=== PATIENT | female | born 1945 | race Caucasian/White ===

== ENCOUNTER → 2018-03-19 15:09 | Outpatient (CLI) | payer MEDICARE, SELFPAY ==
--- NOTE | 2018-03-19 15:19 | MM_ITS ---
MM Dig screening mamm BI w/CAD ORDERING PHYSICIAN : Augie Betancourt MD PATIENT AGE: 72 years GENDER: Female COMPARISON: Previous right mammogram right breast ultrasound from 10/31/2016 bilateral mammogram March 2016, February 2015, 2013. INDICATION: ITS.REASON: SCREENING no hormones. No new complaints. Noncontributory family history. TECHNIQUE: Standard CC and MLO images were obtained. R2 CAD reviewed. . Axillary cc view bilateral FINDINGS: Moderately dense breast bilaterally. RIGHT BREAST:No significant new findings. Small Cyst is previously noted 2015 at deep right breast stable to slightly smaller. 3 mm size... Not of concern & Can be followed. Other areas of mild asymmetric density at the right breast appears stable LEFT BREAST: There is 6 mm ovoid area of density upper-outer quadrant left breast is most likely a cyst. However would recommend spot film and subsequent ultrasound to further evaluate.. It is labeled X There is a focal area of glandular density labeled Y on the MLO view which I favor merely a summation shadow but would also benefit from spot view when the patient returns. MLO . Asymmetric tissue at the medial left breast on cc view is unchanged. IMPRESSION: 1. Left breast: new cyst near 6 mm ovoid density upper-outer quadrant left breast.-likely is a cyst . Recommend spot views & ultrasound left breast to further evaluate this likely cyst labeled X; . Spot view should include small focal of likely glandular density labeled Y.--likely merely summation shadow. 2. Right breast: no significant new findings.. Stable 3 mm cyst deep breast Follow-up one year on right Moderately dense breast bilaterally BI-RADS Category: 0 Need Additional Imaging Evaluation RECOMMENDED FOLLOW-UP: IMM - IMMEDIATE FOLLOW-UP RECOMMENDED Spot views and ultrasound left breast as above (A letter has been sent to the patient regarding results of the study.)
--- NOTE | 2018-03-19 15:19 | XR_ITS ---
XR DEXA axial skeleton HISTORY: ITS.REASON: POST MENOPAUSAL ORDERING PHYSICIAN: Augie Betancourt MD PATIENT AGE: 72 years COMPARISON: 11/24/2015 FINDINGS: The BMD measured at the AP Spine L1-L4 is 0.613 g/cm squared with a T score of -4.7. This is considered Osteoporotic according to the World Health Organization criteria. Fracture risk is High. Treatment is advised. The mean hip density has a T score -3.7. L-spine density slightly lower by 0.6% and the hip density has decreased by 1.4% from the previous exam IMPRESSION: Osteoporosis with high fracture risk. Treatment is advised. Recommend follow-up exam February 2019
== END ==
PROVIDERS: PCP Family Medicine; Visit Provider Family Medicine
DX: Z12.31 Encounter for screening mammogram for malignant neoplasm of breast (principal); Z78.0 Asymptomatic menopausal state
CPT/HCPCS: 77067; 77080

== ENCOUNTER → 2019-04-23 15:37 | Outpatient (CLI) | payer MEDICARE, SELFPAY ==
--- NOTE | 2019-04-23 15:43 | MM_ITS ---
PROCEDURE: MM DIG SCREENING MAMM BI W/CAD CLINICAL INDICATION: SCREENING There is no personal or family history of breast cancer. COMPARISON: [facility]MSB DIG MAMM-SCREEN SAL from 04/10/2016 DMDXUR DIG MAMM-DX UNI-RT W/CAD from 10/31/2016 [facility] MM Dig screening mamm BI w/CAD from 03/19/2018 TECHNIQUE: Standard CC and MLO images were obtained. R2 CAD reviewed. FINDINGS: Prominent diffuse and somewhat heterogenic fibroglandular densities are seen in both breast, glandular elements slightly more prominent right breast than left. There is a stable tiny nodular lesion central portion right breast probably a small cyst or fibroadenoma. It is actually slightly smaller than seen on previous mammogram 10/31/2016 but basically stable from last year's exam. There is no suspicious lesion and no suspicious microcalcifications. IMPRESSION: Moderate diffuse breast density with no suspicious lesions seen BI-RAD Category: 2 Benign Finding(s) FOLLOW-UP: 1YR 1 Year Follow-up (A letter has been sent to the patient regarding results of the study.) Dictated by: Dr. Mahesh Ortega MD 04/24/2019 14:[address] Mahesh Ortega MD in [place] 04/24/2019 14:07
== END ==
PROVIDERS: PCP Family Medicine; Referring Provider Family Medicine; Visit Provider Family Medicine
DX: Z12.31 Encounter for screening mammogram for malignant neoplasm of breast (principal)
CPT/HCPCS: 77067

== ENCOUNTER → 2020-04-25 13:00 | Outpatient (CLI) | payer MEDICARE, SELFPAY ==
--- NOTE | 2020-04-25 13:02 | XR_ITS ---
PROCEDURE: XR DEXA AXIAL SKELETON CLINICAL HISTORY: OSTEOPOROSIS post menopausal , patient states she is not on any prescription bone growth meds COMPARISON: CR DEXAAX XR DEXA axial skeleton from 03/19/2018 FINDINGS: The right hip BMD is 0.498 with a T-score of -3.6. The left hip BMD is 0.423 with a T-score of -4.3. The lumbar spine BMD is 0.496 with a T-score of -5.0. Previously the lowest bone density was in the lumbar spine with a T-score of -4.7. IMPRESSION: This patient is considered osteoporotic according to the World Health Organization criteria. Fracture risk is high. Treatment is advised. Based on these results a follow-up exam is recommended in 1 year. Dictated by: Juliano Euceda MD 04/26/2020 07:04 Juliano Euceda MD in [place] 04/26/2020 07:04
--- NOTE | 2020-04-25 13:03 | MM_ITS ---
PROCEDURE: MM DIG SCREENING MAMM BI W/CAD Referring Doctor: Augie Betancourt Patient Age:74Y CLINICAL INDICATION: SCREENING 74-year-old. No hormones, no new complaints. Family history noncontributory unremarkable COMPARISON: MG DMDXUR DIG MAMM-DX UNI-RT W/CAD from 10/31/2016 US BR US BREAST-RT COMPLETE W/AXILLA from 10/31/2016 MG [facility] MM Dig screening mamm BI w/CAD from 03/19/2018 MG MM DIG SCREENING MAMM BI W/CAD from 04/23/2019 TECHNIQUE: Standard CC and MLO images were obtained. R2 CAD reviewed. Bilateral digital breast tomosynthesis included. Additional axillary CC views bilateral but FINDINGS: Moderate density residual breast tissue most notable distributed throughout central breast into the upper-outer quadrant mammography with slightly decrease sensitivity in these areas of increased breast density Right breast. No new findings of concern There is a small nodular density seen at the right breast inferiorly but this the appears to be a small cyst which was identified on previous October 2016 mammogram and ultrasound located at 5-6 o'clock. This density it fluctuates from mammogram to mammogram Left breast: No new areas of concern. A stable areas ofasymmetry tissue lateral and superior left breast appearsimilar, stable to previous studies.. However with this appearance and pattern would encourage and emphasize annual follow-up IMPRESSION: No new areas of significant concern moderately dense areas of asymmetric breast tissue appear similar to previous study . Small cyst right breast at 5-6 o'clock has been seen previously Bilateral follow-up 1 year recommended and should be encouraged/emphasized. BI-RAD Category: 2 Benign Finding(s) FOLLOW-UP: 1YR 1 Year Follow-up (A letter has been sent to the patient regarding results of the study.) Dictated by: Jose Clifford MD 04/27/2020 11:09 Jose Clifford MD in [place] 04/27/2020 11:09
== END ==
PROVIDERS: PCP Family Medicine; Visit Provider Family Medicine
DX: Z12.31 Encounter for screening mammogram for malignant neoplasm of breast (principal); M81.0 Age-related osteoporosis without current pathological fracture
CPT/HCPCS: 77063; 77067; 77080

== ENCOUNTER → 2021-01-10 13:36 | Outpatient (POV) | payer MEDICARE, SELFPAY | PROVIDERS: Visit Provider Dermatology | DX: Z00.00 Encounter for general adult medical examination without abnormal findings (principal) ==

== ENCOUNTER → 2021-05-22 12:46 | Outpatient (CLI) | payer MEDICARE, SELFPAY ==
--- NOTE | 2021-05-22 12:51 | MM_ITS ---
PROCEDURE INFORMATION: Exam: MG Bilateral Screening 3D Mammography Exam date and time: 05/22/2021 12:51 PM Age: 75 years old Clinical indication: Screening mammogram TECHNIQUE: Imaging protocol: Bilateral screening tomosynthesis and 2D mammography including computer-aided detection (CAD) when performed. COMPARISON: 1. MG MM DIG SCREENING MAMM BI W/CAD 04/25/2020 1:03 PM 2. MG MM DIG SCREENING MAMM BI W/CAD 04/23/2019 3:54 PM 3. MG [facility] MM Dig screening mamm BI w/CAD 03/19/2018 4:08 PM 4. MG DMDXUR DIG MAMM-DX UNI-RT W/CAD 10/31/2016 1:52 PM FINDINGS: MAMMOGRAPHY: Breast composition: The breast tissue is heterogeneously dense, which may obscure small masses. Mass: Stable benign-appearing subcentimeter nodules are present in the right breast. No new or morphologically suspicious nodule has developed to suggest malignancy. Architectural distortion: No new or suspicious architectural distortion. Calcifications: No new or suspicious calcifications are present Asymmetric density: No new or suspicious asymmetric density is present Skin thickening: None. Axillary adenopathy: None. IMPRESSION: No mammographic evidence of malignancy. Recommend annual screening mammography unless otherwise clinically indicated. ASSESSMENT: BI-RADS category 2: Benign
== END ==
PROVIDERS: PCP Family Medicine; Visit Provider Family Medicine
DX: Z12.31 Encounter for screening mammogram for malignant neoplasm of breast (principal)
CPT/HCPCS: 77063; 77067

== ENCOUNTER → 2022-03-13 13:37 | Outpatient (POV) | payer MEDICARE, SELFPAY | PROVIDERS: Visit Provider Dermatology | DX: Z00.00 Encounter for general adult medical examination without abnormal findings (principal) ==

== ENCOUNTER 2022-03-16 20:21 | Emergency (ER) | payer MEDICARE, SELFPAY ==
[2022-03-16 20:22] VITALS: BP 106/55; PULSE 76; RESP 16; TEMP 36.6; O2SAT 96; BMI 19.1
--- NOTE | 2022-03-16 20:57 | ECG_ITS ---
APPROVED REPORT Exam: Resting ECG HR:68 bpm ECG Measurements Heart Rate 68 AXES VA 185 P 78 QRSd 107 QRS 89 QT 400 T 82 QTc 418 Conclusion SINUS RHYTHM LEFT VENTRICULAR HYPERTROPHY AND ST-T CHANGE [VOLTAGE CRITERIA PLUS ST/T ABNORMALITY] ABNORMAL ECG UNCONFIRMED REPORT Electronically signed by : Myles Araya MD 03/18/2022 21:20:02
[2022-03-16 21:30] VITALS: BP 95/52; PULSE 69; RESP 14; O2SAT 95
--- NOTE | 2022-03-16 21:38 | CT_ITS ---
PROCEDURE INFORMATION: Exam: CT Abdomen And Pelvis With Contrast Exam date and time: 03/16/2022 10:03 PM Age: 76 years old Clinical indication: Abdominal pain; Generalized; Additional info: Abd pain vomiting diarrhea TECHNIQUE: Imaging protocol: Computed tomography of the abdomen and pelvis with contrast. Radiation optimization: All CT scans at this facility use at least one of these dose optimization techniques: automated exposure control; mA and/or kV adjustment per patient size (includes targeted exams where dose is matched to clinical indication); or iterative reconstruction. Contrast material: ISOVUE; Contrast volume: 75 ml; Contrast route: IV; COMPARISON: LDCTLCAS LDCT FOR LUNG CA SCREEN 03/20/2017 1:46 PM FINDINGS: Liver: Normal. No mass. Gallbladder and bile ducts: No calcified stones. No ductal dilation. Pancreas: Normal enhancement. No ductal dilation. Spleen: No splenomegaly. Adrenal glands: No mass. Kidneys and ureters: No hydronephrosis. Stomach and bowel: Suspected wall thickening of the transverse and descending colon which are decompressed and not well evaluated. Appendix: No evidence of appendicitis. Intraperitoneal space: No free air. No significant fluid collection. Vasculature: Calcified atherosclerosis. No aneurysm. Lymph nodes: No enlarged lymph nodes. Urinary bladder: No acute abnormality. Reproductive: No acute abnormality. Bones/joints: S shaped curvature of the spine. No fracture. Soft tissues: No soft tissue swelling. IMPRESSION: Suspected wall thickening of the transverse and descending colon which may in part be secondary to underdistention however does raise concern for potential colitis.
[2022-03-16 21:50] LABS: Chloride 98 mmol/L (98-107); Potassium 3.5 mmoL/L (3.5-5.1); Sodium 136 mmol/L (136-145)
[2022-03-16 21:51] LABS: Basophils % 0.2 % (0.1-2.0); Eosinophils # 0.1 K/mm3 (0.0-0.4); Eosinophils % 0.4 % (0.1-12.0); Hematocrit 39.9 % (37.0-47.0); Hemoglobin 12.7 g/dL (12.2-16.2); Lymphocytes % 7.7 % (10-50); Mean Corpuscular HGB Conc 31.7 g/dL (31.8-35.4); Mean Corpuscular Hemoglobin 29.7 pg (27.0-31.2); Mean Corpuscular Volume 93.6 fl (81-99); Mean Platelet Volume 8.2 fl (7.4-10.4); Monocytes # 0.1 K/mm3 (0.1-1.0); Monocytes % 0.6 % (1.7-9.3); Neutrophils # 11.4 K/mm3 (1.8-7.8); Neutrophils % 91.1 % (37.0-80.0); Platelet Count 267 K/mm3 (142-424); Red Blood Count 4.26 M/mm3 (4.20-5.40); White Blood Count 12.5 K/mm3 (4.8-10.8)
[2022-03-16 21:53] LABS: Alanine Aminotransferase 19 U/L (12-78); Albumin Level 3.9 g/dl (3.5-5.0); Albumin/Globulin Ratio 0.9 (1.1-1.8); Alkaline Phosphatase 119 U/L (38-126); Amylase 140 U/L (30-110); Anion Gap 10.5 mEq/L (5-15); Aspartate Amino Transferase 34 U/L (14-36); Bilirubin,Total 0.3 mg/dl (0.2-1.3); Blood Urea Nitrogen 27 mg/dl (7-17); Calcium 8.5 mg/dl (8.4-10.2); Carbon Dioxide 31 mmol/L (22.0-30.0); Creatinine Clearance Estimated 28 mL/min (50-200); Estimated Glomerular Filt Rate 44 ml/min (>60); GFR (African American) 53 ML/MIN (>60); Globulin 4.5 g/dL (1.3-3.2); Glucose 152 mg/dl (74-100); Lipase 62 U/L (23-300); Total Protein,Serum 8.4 g/dl (6.3-8.2)
[2022-03-16 21:54] LABS: MANUAL DIFFERENTIAL MANUAL DIFFERENTIAL (MANUAL DIFF)
[2022-03-16 22:00] VITALS: BP 96/47; PULSE 68; RESP 16; O2SAT 92
--- NOTE | 2022-03-16 22:27 | HMH.EDNVD ---
Discharge Plan Disposition Patient Disposition: Home, Self-Care Prescriptions Prescriptions: New ondansetron HCl 4 mg Tablet 4 mg PO Q8H PRN (Reason: Nausea) Qty: 20 0RF Referrals Follow up/Referrals: Augie Betancourt MD [Primary Care Provider] - See instructions Clinical Impressions Clinical Impression: Colitis Instructions Patient Instructions: DI for Diarrhea and Traveler's Diarrhea -- Adult, DI for Nausea -- Adult Discharge ED Provider: Trevor Campa Nausea/Vomiting/Diarrhea HPI General Chief complaint: Nausea/Vomiting/Diarrhea Stated complaint: V/D Time Seen by Provider: 03/16/22 22:27 Mode of Arrival: Wheelchair Source of Information: Patient, Relative and Medical Record Limitations: No Limitations Description of Symptoms (Recalled from ER Triage Doc. by RN): pt stated pt ate at 4 pm and now she has vomiting and weakness the pt states she is having severe abd cramping History of Present Illness HPI Narrative: after eating today has crampy abd pain with vomiting and bldy diarrhea - has same issue this summer and was treated as op - MD complaint: nausea, vomiting, diarrhea and abdominal pain Onset (ago): hour(s) Description of Diarrhea: bloody Associated Abdominal Pain: Yes Location of pain: diffuse Severity: moderate Context: possible food poisoning Associated symptoms: denies other symptoms Related Data Previous Rx's Medication Instructions Recorded ondansetron HCl 4 mg tablet 4 mg PO Q8H PRN Nausea #20 tabs 03/17/22 Allergies Allergy/AdvReac Type Severity Reaction Status Date / Time INGREDIENT: NO KNOWN - NO Allergy Unknown Uncoded 05/07/17 14:25 KNOWN DRUG ALLERGY PFSH PFS Social History Smoking Status: Unknown if ever smoked alcohol intake: never current occupational status: retired Travel in the last 8 weeks: None ROS Obtained: Yes All systems reviewed & no additional complaints except as documented Constitutional Constitutional: Denies fever(s) and Denies headache(s) ENT Ears, Nose, Mouth, and Throat: Denies headache(s) Cardiovascular Cardiovascular: Denies chest pain Respiratory Respiratory: Denies shortness of breath Gastrointestinal Gastrointestingal: Reports as per HPI, cramping and hematochezia Musculoskeletal Musculoskeletal: Denies back pain Integumentary/Breasts Skin/Breast: Denies new lesions Neurologic Neurologic: Denies headache(s) Physical Exam General General appearance: alert Head Head exam: normocephalic Eye Eye exam: Present PERRL and EOMI ENT ENT exam: Present mucous membranes moist Neck Neck exam: Present trachea midline Respiratory Respiratory exam: Present normal lung sounds bilaterally; Absent respiratory distress Cardiovascular Cardiovascular exam: Present regular rate Abdominal Exam Abdominal exam: Present soft Extremities Exam Extremities exam: Present full ROM Neurological Exam Neurological exam: Present alert, oriented X3 and CN II-XII intact Psychiatric Psychiatric exam: Present normal affect Skin Skin exam: Absent rash Medical Decision Making Medical Records Medical records reviewed: Yes I reviewed the patient's medical records. Oren Inquiry Pt receiving controlled substance: No Vital Signs: 03/16/22 20:22 Temperature 97.8 F Temperature Source Oral Pulse Rate [Left] 76 Respiratory Rate 16 Blood Pressure [Right Arm] 106/55 L Blood Pressure Mean [Right Arm] 72 02 Sat by Pulse Oximetry 96 Oxygen Delivery Method Room Air Lab Data Lab results reviewed: Yes I reviewed the patient's lab results. Lab Results 03/16/22 21:00: WBC 12.5 H, RBC 4.26, Hgb 12.7, Hct 39.9, MCV 93.6, MCH 29.7, MCHC 31.7 L, RDW 14.0, Plt Count 267, MPV 8.2, Neut % (Auto) 91.1 H, Lymph % (Auto) 7.7 L, [place] % (Auto) 0.6 L, Eos % (Auto) 0.4, Baso % (Auto) 0.2, Neut # (Auto) 11.4 H, Lymph # (Auto) 1.0, [place] # (Auto) 0.1, Eos # (Auto) 0.1, Baso # (Auto) 0.0, Total Counted 100, Neutrophils % (Manual) 88 H, Lymphocytes % (
[2022-03-16 22:30] VITALS: BP 114/60; PULSE 77; O2SAT 94
[2022-03-16 22:48] LABS: Lymphocytes % 11 % (10-50); Monocytes % 1 % (2-9); Neutrophils % 88 % (42-76); Platelet Estimate Normal; Stomatocytes 1+; Total Cells Counted 100
[2022-03-16 23:04] LABS: Microscopic, Urine URINE MICROSCOPIC (MICROSCOPIC)
[2022-03-16 23:30] VITALS: BP 122/63; PULSE 84; O2SAT 95
[2022-03-16 23:42] LABS: Appearance,Urine CLEAR (Clear); Bilirubin,Urine Negative (Negative); Blood, Urine Negative (Negative); Color,Urine YELLOW (Yellow); Glucose,Urine (UA) Negative (Negative); Ketones,Urine TRACE (Negative); Leukocyte Esterase,Urine TRACE (Negative); Nitrate,Urine Negative (Negative); Protein,Urine 1+ (Negative); Specific Gravity, Urine <= 1.005 (1.005-1.030); Urobilinogen,Urine 0.2 EU/dl (0.2)
[2022-03-17] VITALS: BP 131/72; PULSE 84; O2SAT 92
[2022-03-17 00:30] VITALS: BP 124/62; PULSE 89; O2SAT 92
[2022-03-17 00:48] LABS: Bacteria,Urine Trace /lpf
[2022-03-17 00:58] VITALS: BP 120/74; PULSE 69; RESP 16; TEMP 36.6; O2SAT 96
== END 2022-03-17 01:00 | disposition home or self-care (01) ==
PROVIDERS: Emergency Provider Emergency Medicine; PCP Family Medicine
DX: K52.9 Noninfective gastroenteritis and colitis, unspecified (principal)
CPT/HCPCS: 74177; 80053; 81001; 82150; 83690; 85007; 85025; 87040; 93005; 96365; 96375; 96376; 99284; J2405; Q9967

== ENCOUNTER 2022-04-18 09:01 | Day surgery (SDC) | payer MEDICARE, SELFPAY ==
[2022-03-26 13:34] VITALS: BMI 19.1
[2022-04-18] VITALS (7 sets, daily range): BP systolic 126–152; BP diastolic 8–85; PULSE 62–108; RESP 16–18; TEMP 36.7; O2SAT 96–97
--- NOTE | 2022-04-18 10:55 | EXP.ANES.CKL ---
PFSH PFS Medical History Hx of primary hypertension Hx of scoliosis Surgical History History of arthroscopy of left shoulder Family History Other Family history of diabetes mellitus type II Family history of stroke Social History Smoking Status: Current every day smoker tobacco type: cigarettes packs per day: 1 pack-years: 20 alcohol intake: never substance use type: denies use current occupational status: retired Travel in the last 8 weeks: None adopted: No caregiver/support person: No foster care: No household members: none housing: apartment lives independently: Yes marital status: single education level: high school service: No [place] [facility]: No special jose needs: No agree to transfusion: No do you feel safe at home: Yes victim of physical abuse: No victim of emotional abuse: No victim of sexual abuse: No would you like helpful sources: No [facility] Anesthesia Checklist Patient Identification Patient Identification: Arm Band Structural Data Admitted From: Home Planned Operative Procedure/s: colonoscopy Consent for Planned Operative Procedure(s) Verified: Yes Verified Documents: Surgical Consent and History and Physical NPO Status Verified Time NPO: 00:00 Additional verifications Anesthesia Reactions: No Airway Assessment C-Spine Mobility Assessed: Yes TMJ Mobility Assessed: Yes Dentition: Good Dentition Neurological Assessment Level of Consciousness: Awake and Alert Anesthesia Plan Anesthesia Risk discussed: Yes Anesthesia Plan: Verified ASA Class: II Anesthesia Type: MAC
--- NOTE | 2022-04-18 11:23 | HMH.SCOPE ---
Procedure: Date: 04/18/22 Patient Date of :: 1945 Procedure Performed:: Colonoscopy Indications:: Screening colonoscopy The patient had diarrhea symptom in February. CT scan showed possible colon wall thickening of the transverse and descending colon, reported that this finding may have also been underdistension of the colon. The patient is no longer experiencing diarrhea symptom Performing Provider:: Sourav Ahn MD Referring Provider:: Rickie Betancourt MD Sedation:: See RN notes Procedure:: After placing the patient in the left lateral decubitus position, the colonoscopy was gently inserted into the rectum and under direct visualization advanced to the cecum which was identified by transillumination in the right lower quadrant, identification of the ileocecal valve, appendiceal orifice, and cecal strap. Color, texture, mucosa, and anatomy of the colon were carefully examined with the scope. Findings:: Anal canal: normal Rectum: normal Sigmoid colon: Polyp less than 10 mm in size at 20 cm. Removed with cold snare polypectomy Descending colon: normal without polyps or inflammatory changes Splenic flexure: normal Transverse colon: normal without polyps or inflammatory changes Hepatic flexure: normal Ascending colon: normal without polyps or inflammatory changes Cecum: normal Terminal ileum: not visualized Recommendations:: Await pathology results In view of age, no further surveillance colonoscopy can be recommended Complications:: none Estimated blood obtained (mL): 0
== END 2022-04-18 12:15 | disposition home or self-care (01) ==
PROVIDERS: PCP Family Medicine; Visit Provider Internal Medicine
PROC: 0DJD8ZZ Inspection of Lower Intestinal Tract, Via Natural or Artificial Opening Endoscopic (ICD-10-PCS; CPT 45378; principal; 2022-04-18 10:30)
DX: Z12.11 Encounter for screening for malignant neoplasm of colon (principal); K63.5 Polyp of colon; Z72.0 Tobacco use; Z79.899 Other long term (current) drug therapy
CPT/HCPCS: 45385; 88305

== ENCOUNTER → 2022-06-04 15:38 | Outpatient (CLI) | payer MEDICARE, SELFPAY ==
--- NOTE | 2022-06-04 15:41 | MM_ITS ---
PROCEDURE INFORMATION: Exam: MG Bilateral Screening 3D Mammography Exam date and time: 06/04/2022 3:58 PM Age: 77 years old Clinical indication: Screening examination TECHNIQUE: Imaging protocol: Bilateral Screening tomosynthesis and 2D mammography including computer-aided detection (CAD) when performed. COMPARISON: 1. MG MM DIG SCREENING MAMM BI W/CAD 05/22/2021 12:58 PM 2. MG MM DIG SCREENING MAMM BI W/CAD 04/25/2020 1:03 PM FINDINGS: MAMMOGRAPHY: Breast composition: The breasts are heterogeneously dense, which may obscure small masses. Mass: None. Architectural distortion: None. Calcifications: No suspicious calcifications. Asymmetric density: None. Skin thickening: None. Axillary adenopathy: None. IMPRESSION: No mammographic evidence of malignancy. Annual screening is recommended unless otherwise clinically indicated. ASSESSMENT: BI-RADS Category 1: Negative
== END ==
PROVIDERS: PCP Family Medicine; Visit Provider Family Medicine
DX: Z12.31 Encounter for screening mammogram for malignant neoplasm of breast (principal)
CPT/HCPCS: 77063; 77067

== ENCOUNTER → 2022-07-06 08:56 | Outpatient (CLI) | payer MEDICARE, SELFPAY ==
--- NOTE | 2022-07-06 09:04 | XR_ITS ---
FINAL REPORT TECHNIQUE: Bone densitometry calculations of the lumbar spine and hips were obtained. CLINICAL HISTORY: . post menopausal screening FINDINGS: DEXA BONE DENSITY AXIAL SKELETON Using L1-4, the bone mineral density of the spine is 0.598 g/cm2, corresponding to T-score of -4.1 with a Z-score of -1.5. Using the left hip, the bone mineral density of the total hip is 0.410 g/cm2, corresponding to a T-score of -4.4 with a Z-score of -2.4. Using the right hip, the bone mineral density of the femoral neck is 0.502 g/cm2, corresponding to a T-score of -3.1 with a Z-score of -0.9. NOTE: T-score: Standard deviation compared with peak bone mass of young adult mean. *Following the recommendations of the International Society of Bone Densitometry, classification of hip BMD is based on the lower of two T-scores; total hip or femoral neck. IMPRESSION: Osteoporosis: Lowest T-score is at or below -2.5. This patient's T-score meets the World Health Organization criteria for osteoporosis. Reviewed, Interpreted and Dictated by Jaye Mccarty MD Transcribed by Jessa Feliz Authenticated and [facility]
[2022-07-06 10:33] LABS: Alanine Aminotransferase 11 U/L (12-78); Albumin Level 4.1 g/dl (3.5-5.0); Albumin/Globulin Ratio 0.7 (1.1-1.8); Alkaline Phosphatase 84 U/L (38-126); Aspartate Amino Transferase 21 U/L (14-36); Bilirubin,Total 0.5 mg/dl (0.2-1.3); Blood Urea Nitrogen 17 mg/dl (7-17); Calcium 8.7 mg/dl (8.4-10.2); Carbon Dioxide 30 mmol/L (22.0-30.0); Chloride 107 mmol/L (98-107); Chol/HDL Ratio 4.4 (1-3.5); Cholesterol 182 mg/dl (140-200); Estimated Glomerular Filt Rate 97 ml/min (>60); GFR (African American) 117 ML/MIN (>60); Globulin 5.9 g/dL (1.3-3.2); Glucose 108 mg/dl (74-100); HDL Cholesterol 41 mg/dl (40-60); Sodium 139 mmol/L (136-145); Triglycerides 87 mg/dl (30-150); VLDL Cholesterol 17 mg/dL (0-40)
[2022-07-06 10:44] LABS: Direct LDL Cholesterol 81.53 mg/dL (100-129)
== END ==
PROVIDERS: PCP Family Medicine; Visit Provider Family Medicine
DX: Z00.00 Encounter for general adult medical examination without abnormal findings (principal); I10 Essential (primary) hypertension; M81.0 Age-related osteoporosis without current pathological fracture
CPT/HCPCS: 36415; 77080; 80053; 80061; 81001; 82043

== ENCOUNTER → 2023-02-13 09:59 | Outpatient (CLI) | payer MEDICARE, SELFPAY ==
[2023-02-13 11:10] LABS: Alanine Aminotransferase 14 U/L (12-78); Albumin Level 3.7 g/dl (3.5-5.0); Alkaline Phosphatase 80 U/L (38-126); Amylase 62 U/L (30-110); Anion Gap 9.1 mEq/L (5-15); Aspartate Amino Transferase 20 U/L (14-36); Bilirubin,Total 0.3 mg/dl (0.2-1.3); Blood Urea Nitrogen 16 mg/dl (7-17); Calcium 8.5 mg/dl (8.4-10.2); Carbon Dioxide 28 mmol/L (22.0-30.0); Chloride 104 mmol/L (98-107); Chol/HDL Ratio 4.6 (1-3.5); Cholesterol 178 mg/dl (140-200); Estimated Glomerular Filt Rate 97 ml/min (>60); GFR (African American) 117 ML/MIN (>60); Glucose 106 mg/dl (74-100); HDL Cholesterol 39 mg/dl (40-60); Lipase 35 U/L (23-300); Potassium 4.1 mmoL/L (3.5-5.1); Sodium 137 mmol/L (136-145); Triglycerides 90 mg/dl (30-150); VLDL Cholesterol 18 mg/dL (0-40)
[2023-02-13 11:21] LABS: Direct LDL Cholesterol 83.68 mg/dL (100-129)
[2023-02-13 11:40] LABS: Albumin/Globulin Ratio 0.5 (1.1-1.8); Globulin 7.3 g/dL (1.3-3.2)
[2023-02-13 11:41] LABS: Thyroid Stimulating Hormone 0.92 uIU/mL (0.465-4.68)
[2023-02-13 11:50] LABS: Total Protein,Serum 10.1 g/dl (6.3-8.2)
== END ==
PROVIDERS: PCP Family Medicine; Visit Provider Family Medicine
DX: I10 Essential (primary) hypertension (principal); R63.4 Abnormal weight loss; R11.0 Nausea
CPT/HCPCS: 36415; 80053; 80061; 82150; 83690; 84443

== ENCOUNTER → 2023-03-04 09:00 | Outpatient (CLI) | payer MEDICARE, SELFPAY ==
--- NOTE | 2023-03-04 09:05 | CT_ITS ---
FINAL REPORT CLINICAL HISTORY: WEIGHT LOSS,EPIGASTRIC PAIN COMPARISON: 03/16/2022 FINDINGS: CT OF THE ABDOMEN AND PELVIS WITH CONTRAST Axial CT images of the abdomen and pelvis were obtained after the administration of oral and iv contrast. Coronal reformatted images were also obtained and reviewed.This study was performed with techniques to keep radiation doses as low as reasonably achievable (ALARA). Individualized dose reduction techniques using automated exposure control or adjustment of mA and/or kV according to the patient's size were employed. Abdomen: There is mild scarring in the lung bases. The heart is normal in size. The liver has an unremarkable appearance, without evidence of mass or biliary ductal dilatation. There is mild gallbladder wall thickening which is nonspecific. The spleen is unremarkable. No adrenal mass is present. There is mild prominence of the pancreatic duct measuring approximately 3 mm, stable and of questionable significance. There is a less than 1 cm cyst in the left kidney which is stable. There are other several less than 1 cm left renal cysts. The aorta is normal in caliber. There is no free fluid or adenopathy. No mass or abnormal fluid collection is seen. There is a moderate to large amount of retained stool. There is soft tissue fullness at the GE junction which could represent infectious or neoplastic. Pelvis: The appendix normal. The urinary bladder is unremarkable. No inflammatory process is seen. There is no evidence of mass or adenopathy. There is no evidence of bowel obstruction. IMPRESSION: Soft tissue fullness at the GE junction. Recommend correlation with upper endoscopy. Stable nonspecific mild prominence of the pancreatic duct of questionable significance. Reviewed, Interpreted and Dictated by Jez Evans III, MD Transcribed by Christel Thomas Authenticated and [facility]
== END ==
PROVIDERS: PCP Family Medicine; Visit Provider Family Medicine
DX: R10.13 Epigastric pain (principal); R63.4 Abnormal weight loss
CPT/HCPCS: 74177; Q9967

== ENCOUNTER 2023-03-27 10:59 | Day surgery (SDC) | payer MEDICARE, SELFPAY ==
[2023-03-26 11:11] VITALS: BMI 19.5
[2023-03-27 11:26] VITALS: BP 159/87; PULSE 108; RESP 18; TEMP 37.1; O2SAT 94
--- NOTE | 2023-03-27 12:14 | EXP.ANES.CKL ---
[facility] Disclaimer: The information contained in this section may have been updated after the patient was seen, as this information can be updated by other users. Medical History Hx of primary hypertension Hx of scoliosis Surgical History History of arthroscopy of left shoulder Family History Other Family history of diabetes mellitus type II Family history of stroke Social History Smoking Status: Current every day smoker tobacco type: cigarettes packs per day: 1 alcohol intake: never substance use type: denies use current occupational status: retired Travel in the last 8 weeks: None adopted: No caregiver/support person: No foster care: No household members: none housing: apartment lives independently: Yes marital status: single education level: high school service: No halfway: No special jose needs: No agree to transfusion: No do you feel safe at home: Yes victim of physical abuse: No victim of emotional abuse: No victim of sexual abuse: No would you like helpful sources: No [facility] Anesthesia Checklist Patient Identification Patient Identification: Verbal (Name & ) Structural Data Admitted From: Home Planned Operative Procedure/s: colonoscopy Consent for Planned Operative Procedure(s) Verified: Yes NPO Status Verified Time NPO: 00:00 Additional verifications Anesthesia Reactions: No Airway Assessment Mallampati Score:: Class I C-Spine Mobility Assessed: Yes TMJ Mobility Assessed: Yes Dentition: Good Dentition Neurological Assessment Level of Consciousness: Awake, Alert and Appropriate Anesthesia Plan Anesthesia Risk discussed: Yes Anesthesia Plan: Verified ASA Class: II Anesthesia Type: MAC
[2023-03-27 12:24] VITALS: O2SAT 99
[2023-03-27 12:36] VITALS: BP 124/70; PULSE 96; RESP 18; TEMP 37.2; O2SAT 96
--- NOTE | 2023-03-27 12:36 | HMH.SCOPE ---
Procedure: Date: 03/27/23 Patient Date of :: 1945 Procedure Performed:: EGD Indications:: Abnormal CT abdomen and pelvis with contrast on 03/04/23 for epigastric abdominal pain that showed possible soft tissue fullness at the GE junction. CT scan also suggested possible mild pancreatic duct prominence. Performing Provider:: Sourav Ahn MD Referring Provider:: Rickie Betancourt MD Sedation:: See RN records Procedure:: The gastroscope was gently passed through the incisoral orifice into the oral cavity and under direct visualization the esophagus was intubated. The endoscope was passed down the esophagus, through the stomach, and into the duodenum. Color, texture, mucosa, and anatomy of the esophagus, stomach, and duodenum were carefully examined with the scope. Findings:: Oropharynx: normal Esophagus: Small white mucosal lesion of distal esophagus, suspected sqaumous papilloma. Removed with cold forceps EG Junction: measured at 35 cm Cardia: normal Fundus: normal Body: normal Antrum: normal Duodenal bulb: normal Duodenum (second and third portion): normal Impression: Sqaumous papilloma of distal esophagus Normal apearance to GE junction Recommendations:: Await pathology results Refer for EUS evaluation of abnormal CT findings Complications:: None Estimated blood obtained (mL): 0 Colonoscopy Component Colonoscopy Component Was a colonoscopy performed during today's procedure?: No
[2023-03-27 12:46] VITALS: BP 122/94; PULSE 99; RESP 18; O2SAT 96
[2023-03-27 12:56] VITALS: BP 144/82; PULSE 95; RESP 18; O2SAT 98
[2023-03-27 13:06] VITALS: BP 139/72; PULSE 89; RESP 18; TEMP 37.2; O2SAT 96
== END 2023-03-27 13:06 | disposition home or self-care (01) ==
PROVIDERS: PCP Family Medicine; Visit Provider Internal Medicine
PROC: 0DJ08ZZ Inspection of Upper Intestinal Tract, Via Natural or Artificial Opening Endoscopic (ICD-10-PCS; CPT 43235; principal; 2023-03-27 12:00)
DX: K21.9 Gastro-esophageal reflux disease without esophagitis (principal); R93.5 Abnormal findings on diagnostic imaging of other abdominal regions, including retroperitoneum; R10.13 Epigastric pain
CPT/HCPCS: 43239; 88305

== ENCOUNTER 2023-07-08 09:20 | Outpatient (CLI) | payer MEDICARE, SELFPAY ==
--- NOTE | 2023-07-08 09:26 | MM_ITS ---
PROCEDURE INFORMATION: Exam: MG Bilateral Screening 3D Mammography Exam date and time: 07/08/2023 9:43 AM Age: 78 years old Clinical indication: Screening mammogram TECHNIQUE: Imaging protocol: Bilateral Screening tomosynthesis and 2D mammography including computer-aided detection (CAD) when performed. COMPARISON: 1. MG MM DIG SCREENING MAMM BI W/CAD 06/04/2022 3:58 PM 2. MG MM DIG SCREENING MAMM BI W/CAD 05/22/2021 12:58 PM 3. MG MM DIG SCREENING MAMM BI W/CAD 04/25/2020 1:03 PM 4. MG MM DIG SCREENING MAMM BI W/CAD 04/23/2019 3:54 PM FINDINGS: MAMMOGRAPHY: Breast composition: The breast is heterogeneously dense, which may obscure small masses. Mass: Stable benign-appearing subcentimeter nodules are present in the right breast. No new or morphologically suspicious nodule has developed to suggest malignancy. Architectural distortion: No new or suspicious architectural distortion. Calcifications: No new or suspicious calcifications are present Asymmetric density: No new or suspicious asymmetric density is present Skin thickening: None. Axillary adenopathy: None. IMPRESSION: No mammographic evidence of malignancy. Recommend annual screening mammography unless otherwise clinically indicated. ASSESSMENT: BI-RADS category 2: Benign
--- NOTE | 2023-07-08 09:26 | XR_ITS ---
FINAL REPORT TECHNIQUE: Bone densitometry calculations of the lumbar spine and left hip were obtained. CLINICAL HISTORY: SCREENING/OSTEOPOROSIS COMPARISON: Akira teen 2022 FINDINGS: Using L1-4, the bone mineral density of the spine is 0.596 g/cm2, corresponding to T-score of -4.1 and a Z score of -1.5. This is within the range of osteoporosis. Using the left hip, the bone mineral density of the femoral neck is 0.45 g/cm2, corresponding to a T-score of -4 and a Z-score of -2. This is within the range of osteoporosis. NOTE: T-score: Standard deviation compared with peak bone mass of young adult mean. *Following the recommendations of the International Society of Bone densitometry, classification of hip BMD is based on the lower of two T-scores; total hip or femoral neck. IMPRESSION: 1. Bone mineral density of the lumbar spine within the range of osteoporosis. Score is not significantly changed since prior exam. 2. Bone mineral density of the left femoral neck within the range of osteoporosis. Scores suggest worsening since prior exam. Reviewed, Interpreted and Dictated by Sachin Hein MD Transcribed by Nayla Tello Authenticated and [facility]
== END 2023-07-08 23:59 ==
LOC: RAD 09:21
PROVIDERS: PCP Family Medicine; Visit Provider Family Medicine
DX: Z12.31 Encounter for screening mammogram for malignant neoplasm of breast (principal); M81.0 Age-related osteoporosis without current pathological fracture
CPT/HCPCS: 77063; 77067; 77080

== ENCOUNTER 2023-11-19 14:38 | Outpatient (CLI) | payer MEDICARE, SELFPAY ==
[2023-11-19 14:45] VITALS: BMI 19.1
--- NOTE | 2023-11-19 14:55 | PC.NURSE ---
1452 Labs obtained as ordered per Dr. Soto via venipuncture x1 stick L AC with butterfly needle. Patient tolerated well.
[2023-11-19 15:06] LABS: Basophils % 0.9 % (0.1-2.0); Eosinophils % 0.9 % (0.1-12.0); Hematocrit 30.2 % (37.0-47.0); Hemoglobin 9.8 g/dL (12.2-16.2); Lymphocytes # 1.8 K/mm3 (0.7-4.5); Lymphocytes % 50.4 % (10-50); Mean Corpuscular HGB Conc 32.6 g/dL (31.8-35.4); Mean Corpuscular Hemoglobin 31.3 pg (27.0-31.2); Mean Corpuscular Volume 96.1 fl (81-99); Mean Platelet Volume 8.2 fl (7.4-10.4); Monocytes # 0.2 K/mm3 (0.1-1.0); Monocytes % 5.5 % (1.7-9.3); Neutrophils # 1.5 K/mm3 (1.8-7.8); Neutrophils % 42.3 % (37.0-80.0); Platelet Count 218 K/mm3 (142-424); Red Blood Count 3.14 M/mm3 (4.20-5.40); Red Cell Distribution Width 17.1 % (11.5-17.5); White Blood Count 3.5 K/mm3 (4.8-10.8)
[2023-11-19 15:08] LABS: MANUAL DIFFERENTIAL MANUAL DIFFERENTIAL (MANUAL DIFF)
[2023-11-19 15:11] LABS: Chloride 106 mmol/L (98-107)
[2023-11-19 15:12] LABS: Potassium 3.2 mmoL/L (3.5-5.1); Sodium 139 mmol/L (136-145)
[2023-11-19 15:14] LABS: Alanine Aminotransferase 18 U/L (12-78); Albumin Level 3.9 g/dl (3.5-5.0); Alkaline Phosphatase 73 U/L (38-126); Anion Gap 6.2 mEq/L (5-15); Aspartate Amino Transferase 30 U/L (14-36); Bilirubin,Total 0.2 mg/dl (0.2-1.3); Blood Urea Nitrogen 19 mg/dl (7-17); Carbon Dioxide 30 mmol/L (22.0-30.0); Creatinine Clearance Estimated 32 mL/min (50-200); Estimated Glomerular Filt Rate 81 ml/min (>60); GFR (African American) 98 ML/MIN (>60)
[2023-11-19 15:15] LABS: Calcium 8.5 mg/dl (8.4-10.2); Glucose 103 mg/dl (74-100)
[2023-11-19 15:16] LABS: Albumin/Globulin Ratio 0.5 (1.1-1.8)
[2023-11-19 15:22] LABS: Globulin 8.2 g/dL (1.3-3.2); Total Protein,Serum 12.1 g/dl (6.3-8.2)
[2023-11-19 15:36] LABS: Eosinophils % 1 % (0-3); Lymphocytes % 54 % (10-50); Monocytes % 3 % (2-9); Neutrophils % 41 % (42-76); Platelet Estimate Normal; RBC Morphology Normal; Total Cells Counted 100
[2023-11-21 12:12] LABS: Immunoglobulin A, Qn 52 mg/dL (64-422); Immunoglobulin G, Qn 8739 mg/dL (586-1602); Immunoglobulin M, Qn 19 mg/dL (26-217)
[2023-11-22 15:11] LABS: Albumin 3.8 g/dL (2.9-4.4); Alpha-1-Globulin 0.3 g/dL (0.0-0.4); Alpha-2-Globulin 0.7 g/dL (0.4-1.0); Gamma Globulin 5.7 g/dL (0.4-1.8); Protein, Total 11.5 g/dL (6.0-8.5)
[2023-11-25 11:36] LABS: Immunoglobulin A, Qn 52 mg/dL (64-422); Immunoglobulin G, Qn 9004 mg/dL (586-1602); Immunoglobulin M, Qn 20 mg/dL (26-217)
[2024-01-06 10:51] LABS: PDF SCANNED IMAGE
[2024-01-06 10:52] LABS: Free Kappa Lt Chains 7.3; Free Lambda Lt Chains 1656.1
== END 2023-11-19 14:59 | disposition home or self-care (01) ==
LOC: INF 14:40
PROVIDERS: PCP Family Medicine; Visit Provider Internal Medicine Medical Oncology
DX: D47.2 Monoclonal gammopathy (principal)
CPT/HCPCS: 36415; 80053; 82784; 83883; 84155; 84165; 85007; 85025; 85027; 86334

== ENCOUNTER 2023-11-29 07:30 | Outpatient (CLI) | payer MEDICARE, SELFPAY ==
[2023-11-29] VITALS (11 sets, daily range): BP systolic 111–165; BP diastolic 61–94; PULSE 72–93; RESP 18; TEMP 36.3; O2SAT 92–100; BMI 19.5
--- NOTE | 2023-11-29 07:37 | CT_ITS ---
FINAL REPORT CLINICAL HISTORY: ABNORMAL LABS. 2MG VERSED, .50mcg FENTANYL FINDINGS: CT-GUIDED BONE MARROW BIOPSY HISTORY:Abnormal lab values. ATTENDING PHYSICIAN: Dr. Evans. PHYSICIAN INFORMATICA MDM DEVELOPER: Lashell Anguiano PA-C. PROCEDURE: Informed consent was obtained from the patient. The risks of the procedure were discussed with the patient prior to beginning. The patient was placed prone on the CT table. Localization images were performed. The skin was marked appropriately. The patient was prepped and draped in the usual sterile fashion over posterior left iliac bone. The skin was anesthetized with 1% lidocaine. Access to the iliac bone was obtained. Subsequently, approximately 15 mL of bone marrow aspirate was obtained. Following this, approximately a 1 cm core was obtained. 2 mg of Versed and 50 mcg of fentanyl were administered for procedural sedation. This was provided by the anesthesia service. Overall sedation time was approximately 15 minutes. There was continuous monitoring of vital signs. The patient tolerated the procedure well and left the department in good condition. CT-guidance was utilized for this procedure. IMPRESSION: Technically successful CT-guided bone marrow biopsy. Reviewed, Interpreted and Dictated by Jez Evans III, MD Transcribed by Lashell Anguiano PA-C Authenticated and [facility]
--- NOTE | 2023-11-29 07:37 | CT_ITS ---
FINAL REPORT CLINICAL HISTORY: ABNORMAL BLOODWORK COMPARISON: None FINDINGS: CLINICAL HISTORY: MULTIPLE MYELOMA CT LOW DOSE MYELOMA SCAN FINDINGS: CT HEAD, NECK, CHEST, ABDOMEN, PELVIS AND LOWER EXTREMITIES WITHOUT CONTRAST Axial CT images were performed from the head through the ankles utilizing a low-dose protocol. Coronal and sagittal reformatted images were submitted. Head: There is no mass effect or midline shift. There is no acute hemorrhage. Chest: There is no lung mass or consolidation. Abdomen and pelvis: Noncontrast evaluation of the solid abdominal organs are without acute abnormality. No evidence of bowel obstruction. Osseous structures: No lytic lesions or acute osseous abnormality. Note is made of vertebral anomalies in the thoracic spine and sacrum. IMPRESSION: No convincing lytic lesions. Note is made of vertebral anomalies in the thoracic spine and sacrum. Reviewed, Interpreted and Dictated by Jaye Mccarty MD Transcribed by Nayla Tello Authenticated and [facility]
[2023-11-29 08:33] LABS: Basophils % 0.5 % (0.1-2.0); Eosinophils # 0.1 K/mm3 (0.0-0.4); Eosinophils % 1.3 % (0.1-12.0); Hematocrit 27.7 % (37.0-47.0); Hemoglobin 8.9 g/dL (12.2-16.2); Lymphocytes # 1.8 K/mm3 (0.7-4.5); Lymphocytes % 46.7 % (10-50); Mean Corpuscular HGB Conc 32.3 g/dL (31.8-35.4); Mean Corpuscular Volume 96.1 fl (81-99); Mean Platelet Volume 7.7 fl (7.4-10.4); Monocytes # 0.3 K/mm3 (0.1-1.0); Neutrophils # 1.7 K/mm3 (1.8-7.8); Neutrophils % 44.4 % (37.0-80.0); Platelet Count 217 K/mm3 (142-424); Red Blood Count 2.88 M/mm3 (4.20-5.40); Red Cell Distribution Width 17.3 % (11.5-17.5); White Blood Count 3.9 K/mm3 (4.8-10.8)
[2023-11-29 08:40] LABS: Activated Partial Thrombo Time 29.1 seconds (22.8-30.6); INR 1.04 (0.9-1.1); Prothrombin Time 11.6 seconds (10.1-12.5)
[2023-11-29] MEDS: LIDOCAINE 1% 20ML MDV 20 ML (09:52)
[2023-11-29] MEDS: HEPARIN SODIUM 5,000 UNIT/ML VIAL 5000 UNIT (09:53)
== END 2023-11-29 23:59 | disposition home or self-care (01) ==
PROVIDERS: PCP Family Medicine; Visit Provider Internal Medicine Medical Oncology
DX: C90.00 Multiple myeloma not having achieved remission (principal); R79.9 Abnormal finding of blood chemistry, unspecified; D47.2 Monoclonal gammopathy; Z79.899 Other long term (current) drug therapy; F17.210 Nicotine dependence, cigarettes, uncomplicated
CPT/HCPCS: 38221; 76497; 77012; 85025; 85097; 85610; 85730; 88184; 88185; 88305; 88311; 88360; J1644; J2250; J3010

== ENCOUNTER 2023-12-05 14:41 | Outpatient (CLI) | payer MEDICARE, SELFPAY ==
--- NOTE | 2023-12-05 15:08 | PC.NURSE ---
1447 Beta 2 Microglobulin lab collected per venipuncture to L AC with butterfly needle. Patient tolerated well.
[2023-12-12 09:00] LABS: Miscellaneous Test SCANNED IMAGE
== END 2023-12-05 14:55 | disposition home or self-care (01) ==
LOC: INF 14:42
PROVIDERS: Visit Provider Internal Medicine Medical Oncology
DX: C90.00 Multiple myeloma not having achieved remission (principal)
CPT/HCPCS: 36415

== ENCOUNTER 2023-12-12 13:01 | Outpatient (CLI) | payer MEDICARE, SELFPAY ==
[2023-12-12 13:37] VITALS: BP 145/75; PULSE 110; RESP 18; TEMP 37; O2SAT 94
[2023-12-12] MEDS: PROCHLORPERAZINE 10MG TABLET 10 MG PO (13:37)
[2023-12-12 13:54] VITALS: BP 138/79; PULSE 94; RESP 18; TEMP 37; O2SAT 96
[2023-12-12] MEDS: BORTEZOMIB 3.5MG VIAL 1.8 MG SQ (13:54)
[2023-12-12 14:10] VITALS: BP 141/70; PULSE 91; RESP 18; O2SAT 96
== END 2023-12-12 14:10 | disposition home or self-care (01) ==
LOC: INF 13:03
PROVIDERS: PCP Family Medicine; Visit Provider Internal Medicine Medical Oncology
DX: C90.00 Multiple myeloma not having achieved remission (principal); Z79.899 Other long term (current) drug therapy
CPT/HCPCS: 96401; J9041; Q0164

== ENCOUNTER 2023-12-19 12:51 | Outpatient (CLI) | payer MEDICARE, SELFPAY ==
--- NOTE | 2023-12-19 13:16 | PC.NURSE ---
12/19/23 1304 pt here today for Velcade injection, check labs. Venipuncture performed using a butterfly access needle to pt's rt ac x 1 stick, blood drawn for labs. Specimen sent to lab for analysis.
[2023-12-19 13:17] LABS: Basophils % 0.3 % (0.1-2.0); Eosinophils # 0.1 K/mm3 (0.0-0.4); Eosinophils % 0.8 % (0.1-12.0); Hematocrit 30.8 % (37.0-47.0); Hemoglobin 9.9 g/dL (12.2-16.2); Lymphocytes # 1.1 K/mm3 (0.7-4.5); Lymphocytes % 15.4 % (10-50); Mean Corpuscular HGB Conc 32.1 g/dL (31.8-35.4); Mean Corpuscular Hemoglobin 31.6 pg (27.0-31.2); Mean Corpuscular Volume 98.5 fl (81-99); Mean Platelet Volume 8.4 fl (7.4-10.4); Monocytes # 0.1 K/mm3 (0.1-1.0); Monocytes % 1.6 % (1.7-9.3); Neutrophils # 5.6 K/mm3 (1.8-7.8); Neutrophils % 81.9 % (37.0-80.0); Platelet Count 228 K/mm3 (142-424); Red Blood Count 3.12 M/mm3 (4.20-5.40); Red Cell Distribution Width 17.1 % (11.5-17.5); White Blood Count 6.9 K/mm3 (4.8-10.8)
[2023-12-19 13:55] LABS: Alanine Aminotransferase 24 U/L (12-78); Albumin Level 3.7 g/dl (3.5-5.0); Alkaline Phosphatase 76 U/L (38-126); Anion Gap 9.4 mEq/L (5-15); Aspartate Amino Transferase 27 U/L (14-36); Bilirubin,Total 0.4 mg/dl (0.2-1.3); Blood Urea Nitrogen 16 mg/dl (7-17); Calcium 9.1 mg/dl (8.4-10.2); Carbon Dioxide 27 mmol/L (22.0-30.0); Chloride 101 mmol/L (98-107); Creatinine Clearance Estimated 32 mL/min (50-200); Estimated Glomerular Filt Rate 96 ml/min (>60); GFR (African American) 117 ML/MIN (>60); Glucose 202 mg/dl (74-100); Potassium 3.4 mmoL/L (3.5-5.1); Sodium 134 mmol/L (136-145)
[2023-12-19 14:02] LABS: Albumin/Globulin Ratio 0.5 (1.1-1.8); Globulin 7.4 g/dL (1.3-3.2); Total Protein,Serum 11.1 g/dl (6.3-8.2)
[2023-12-19 14:27] VITALS: BP 158/70; PULSE 98; RESP 20; TEMP 36.6; O2SAT 96
[2023-12-19] MEDS: BORTEZOMIB 3.5MG VIAL 1.8 MG SQ (14:27)
== END 2023-12-19 14:55 | disposition home or self-care (01) ==
LOC: INF 12:51
PROVIDERS: PCP Family Medicine; Visit Provider Internal Medicine Medical Oncology
DX: C90.00 Multiple myeloma not having achieved remission (principal)
CPT/HCPCS: 36415; 80053; 85025; 96401; J9041

== ENCOUNTER 2023-12-26 12:52 | Outpatient (CLI) | payer MEDICARE, SELFPAY ==
[2023-12-26 13:16] VITALS: BP 131/65; PULSE 93; RESP 18; TEMP 36.7; O2SAT 95
[2023-12-26] MEDS: BORTEZOMIB 3.5MG VIAL 1.8 MG SQ (13:16)
== END 2023-12-26 13:45 | disposition home or self-care (01) ==
LOC: INF 12:53
PROVIDERS: PCP Family Medicine; Visit Provider Internal Medicine Medical Oncology
DX: C43.8 Malignant melanoma of overlapping sites of skin (principal)
CPT/HCPCS: 96401; J9041

== ENCOUNTER 2024-01-02 10:07 | Outpatient (CLI) | payer MEDICARE, SELFPAY ==
--- NOTE | 2024-01-02 10:24 | PC.NURSE ---
Pt presents prior to md appt to have blood drawn for labs. Venipuncture performed to pt's rt ac x 1 stick and blood obtained for labs as ordered. Needle withdrawn and site secured with 2x2 gauze and coban. Specimen sent to lab for analysis. Pt ambulated down to specialty clinic for appt with friend.
[2024-01-02 10:32] LABS: Basophils % 0.7 % (0.1-2.0); Eosinophils % 0.8 % (0.1-12.0); Hematocrit 30.6 % (37.0-47.0); Hemoglobin 9.3 g/dL (12.2-16.2); Lymphocytes # 1.2 K/mm3 (0.7-4.5); Lymphocytes % 29.3 % (10-50); Mean Corpuscular HGB Conc 30.6 g/dL (31.8-35.4); Mean Corpuscular Volume 101.4 fl (81-99); Monocytes # 0.2 K/mm3 (0.1-1.0); Monocytes % 5.2 % (1.7-9.3); Neutrophils # 2.7 K/mm3 (1.8-7.8); Neutrophils % 64.1 % (37.0-80.0); Platelet Count 168 K/mm3 (142-424); Red Blood Count 3.02 M/mm3 (4.20-5.40); Red Cell Distribution Width 17.2 % (11.5-17.5); White Blood Count 4.2 K/mm3 (4.8-10.8)
[2024-01-02 10:36] LABS: Albumin Level 3.6 g/dl (3.5-5.0); Chloride 103 mmol/L (98-107)
[2024-01-02 10:37] LABS: Sodium 135 mmol/L (136-145)
[2024-01-02 10:39] LABS: Alanine Aminotransferase 19 U/L (12-78); Aspartate Amino Transferase 24 U/L (14-36); Blood Urea Nitrogen 18 mg/dl (7-17); Carbon Dioxide 31 mmol/L (22.0-30.0); Creatinine Clearance Estimated 32 mL/min (50-200); Estimated Glomerular Filt Rate 69 ml/min (>60); GFR (African American) 84 ML/MIN (>60)
[2024-01-02 10:40] LABS: Albumin/Globulin Ratio 0.6 (1.1-1.8); Alkaline Phosphatase 71 U/L (38-126); Bilirubin,Total 0.4 mg/dl (0.2-1.3); Calcium 7.9 mg/dl (8.4-10.2); Globulin 5.8 g/dL (1.3-3.2); Glucose 125 mg/dl (74-100); Total Protein,Serum 9.4 g/dl (6.3-8.2)
[2024-01-02 11:27] VITALS: BP 123/60; PULSE 70; RESP 18; TEMP 36.5; O2SAT 98
[2024-01-02] MEDS: BORTEZOMIB 3.5MG VIAL 1.8 MG SQ (11:27)
[2024-01-03 14:47] LABS: Lactate Dehydrogenase 171 U/L (313-618)
== END 2024-01-02 11:45 | disposition home or self-care (01) ==
LOC: INF 10:08
PROVIDERS: PCP Family Medicine; Visit Provider Internal Medicine Medical Oncology
DX: C90.00 Multiple myeloma not having achieved remission (principal)
CPT/HCPCS: 80053; 83615; 85025; 96401; J9041

== ENCOUNTER 2024-01-09 12:57 | Outpatient (CLI) | payer MEDICARE, SELFPAY ==
[2024-01-09] MEDS: BORTEZOMIB 3.5MG VIAL 1.8 MG SQ (13:22)
[2024-01-09 13:30] VITALS: BP 123/62; PULSE 84; RESP 18; O2SAT 94
== END 2024-01-09 13:40 | disposition home or self-care (01) ==
LOC: INF 13:01
PROVIDERS: PCP Family Medicine; Visit Provider Internal Medicine Medical Oncology
DX: C90.00 Multiple myeloma not having achieved remission (principal)
CPT/HCPCS: 96401; J9041

== ENCOUNTER 2024-01-16 12:55 | Outpatient (CLI) | payer MEDICARE, SELFPAY ==
[2024-01-16 13:21] VITALS: BP 124/61; PULSE 80; RESP 18; TEMP 36.7; O2SAT 95
[2024-01-16] MEDS: BORTEZOMIB 3.5MG VIAL 1.8 MG SQ (13:21)
== END 2024-01-16 13:30 | disposition home or self-care (01) ==
LOC: INF 12:56
PROVIDERS: PCP Family Medicine; Visit Provider Internal Medicine Medical Oncology
DX: C43.8 Malignant melanoma of overlapping sites of skin (principal)
CPT/HCPCS: 96401; J9041

== ENCOUNTER 2024-01-23 10:55 | Outpatient (CLI) | payer MEDICARE, SELFPAY ==
--- NOTE | 2024-01-23 11:07 | PC.NURSE ---
Pt presents today for venipuncture/labs prior to oncology md appt today. Venipuncture performed per Amber Santamaria RN x 1 stick to pt's lt ac and blood drawn for labs. Needle withdrawn and site secured with 2x2 gauze and coban. Pt able to ambulate self to clinic to see md for appt. Pt will return for treatment.
[2024-01-23 11:26] LABS: Basophils % 0.3 % (0.1-2.0); Hematocrit 31.3 % (37.0-47.0); Hemoglobin 9.7 g/dL (12.2-16.2); Lymphocytes # 1.3 K/mm3 (0.7-4.5); Lymphocytes % 35.4 % (10-50); Mean Corpuscular HGB Conc 30.9 g/dL (31.8-35.4); Mean Corpuscular Hemoglobin 30.2 pg (27.0-31.2); Mean Corpuscular Volume 97.9 fl (81-99); Mean Platelet Volume 9.1 fl (7.4-10.4); Monocytes # 0.2 K/mm3 (0.1-1.0); Monocytes % 6.1 % (1.7-9.3); Neutrophils % 57.2 % (37.0-80.0); Platelet Count 147 K/mm3 (142-424); Red Cell Distribution Width 16.6 % (11.5-17.5); White Blood Count 3.6 K/mm3 (4.8-10.8)
[2024-01-23 11:41] LABS: Alanine Aminotransferase 20 U/L (12-78); Albumin Level 3.4 g/dl (3.5-5.0); Albumin/Globulin Ratio 0.6 (1.1-1.8); Alkaline Phosphatase 80 U/L (38-126); Anion Gap 3.8 mEq/L (5-15); Aspartate Amino Transferase 26 U/L (14-36); Bilirubin,Total 0.3 mg/dl (0.2-1.3); Blood Urea Nitrogen 14 mg/dl (7-17); Calcium 8.4 mg/dl (8.4-10.2); Carbon Dioxide 29 mmol/L (22.0-30.0); Chloride 105 mmol/L (98-107); Creatinine Clearance Estimated 32 mL/min (50-200); Estimated Glomerular Filt Rate 96 ml/min (>60); GFR (African American) 117 ML/MIN (>60); Globulin 5.3 g/dL (1.3-3.2); Glucose 98 mg/dl (74-100); Lactate Dehydrogenase 147 U/L (313-618); Potassium 3.8 mmoL/L (3.5-5.1); Sodium 134 mmol/L (136-145); Total Protein,Serum 8.7 g/dl (6.3-8.2)
[2024-01-23 12:10] VITALS: BP 133/69; PULSE 74; RESP 20; TEMP 36.7; O2SAT 97
[2024-01-23] MEDS: BORTEZOMIB 3.5MG VIAL 1.8 MG SQ (12:10)
[2024-01-24 11:13] LABS: Albumin 3.4 g/dL (2.9-4.4); Alpha-1-Globulin 0.3 g/dL (0.0-0.4); Alpha-2-Globulin 0.7 g/dL (0.4-1.0); Gamma Globulin 3.4 g/dL (0.4-1.8); Protein, Total 8.6 g/dL (6.0-8.5)
[2024-01-24 18:32] LABS: Free Kappa Lt Chains 7.7 mg/L (3.3-19.4)
[2024-01-27 15:10] LABS: Immunoglobulin A, Qn 40 mg/dL (64-422); Immunoglobulin G, Qn 4421 mg/dL (586-1602); Immunoglobulin M, Qn 22 mg/dL (26-217)
[2024-01-29 12:44] LABS: PDF SCANNED IMAGE
== END 2024-01-23 12:25 | disposition home or self-care (01) ==
LOC: INF 10:56
PROVIDERS: PCP Family Medicine; Visit Provider Internal Medicine Medical Oncology
DX: C90.00 Multiple myeloma not having achieved remission (principal)
CPT/HCPCS: 36415; 80053; 82784; 83615; 83883; 84155; 84165; 85025; 86334; 96401; J9041

== ENCOUNTER 2024-01-30 12:43 | Outpatient (CLI) | payer MEDICARE, SELFPAY ==
[2024-01-30 13:04] VITALS: BP 132/57; PULSE 93; RESP 18; TEMP 36.7; O2SAT 95
[2024-01-30] MEDS: BORTEZOMIB 3.5MG VIAL 1.8 MG SQ (13:04)
== END 2024-01-30 13:29 | disposition home or self-care (01) ==
LOC: INF 12:45
PROVIDERS: PCP Family Medicine; Visit Provider Internal Medicine Medical Oncology
DX: C90.00 Multiple myeloma not having achieved remission (principal)
CPT/HCPCS: 96401; J9041

== ENCOUNTER 2024-02-06 13:14 | Outpatient (CLI) | payer MEDICARE, SELFPAY ==
[2024-02-06 13:40] VITALS: BP 134/74; PULSE 75; RESP 18; TEMP 36.2; O2SAT 95
[2024-02-06] MEDS: BORTEZOMIB 3.5MG VIAL 1.8 MG SQ (13:40)
== END 2024-02-06 14:00 | disposition home or self-care (01) ==
LOC: INF 13:15
PROVIDERS: PCP Family Medicine; Visit Provider Internal Medicine Medical Oncology
DX: C90.00 Multiple myeloma not having achieved remission (principal)
CPT/HCPCS: 96401; J9041

== ENCOUNTER 2024-02-13 11:11 | Outpatient (CLI) | payer MEDICARE, SELFPAY ==
[2024-02-13] MEDS: PROCHLORPERAZINE 10MG TABLET 10 MG PO (11:25)
[2024-02-13 11:39] LABS: Chloride 104 mmol/L (98-107); Potassium 3.6 mmoL/L (3.5-5.1); Sodium 137 mmol/L (136-145)
[2024-02-13 11:42] LABS: Alanine Aminotransferase 21 U/L (12-78); Albumin/Globulin Ratio 0.7 (1.1-1.8); Alkaline Phosphatase 88 U/L (38-126); Anion Gap 3.6 mEq/L (5-15); Aspartate Amino Transferase 23 U/L (14-36); Bilirubin,Total 0.4 mg/dl (0.2-1.3); Blood Urea Nitrogen 12 mg/dl (7-17); Carbon Dioxide 33 mmol/L (22.0-30.0); Creatinine Clearance Estimated 32 mL/min (50-200); Estimated Glomerular Filt Rate 96 ml/min (>60); GFR (African American) 117 ML/MIN (>60); Globulin 5.7 g/dL (1.3-3.2); Total Protein,Serum 9.7 g/dl (6.3-8.2)
[2024-02-13 11:43] LABS: Calcium 9.1 mg/dl (8.4-10.2); Glucose 106 mg/dl (74-100)
[2024-02-13 11:55] LABS: Basophils % 0.5 % (0.1-2.0); Eosinophils % 0.3 % (0.1-12.0); Hematocrit 36.9 % (37.0-47.0); Hemoglobin 11.3 g/dL (12.2-16.2); Lymphocytes # 0.9 K/mm3 (0.7-4.5); Lymphocytes % 22.8 % (10-50); Mean Corpuscular HGB Conc 30.5 g/dL (31.8-35.4); Mean Corpuscular Hemoglobin 31.6 pg (27.0-31.2); Mean Corpuscular Volume 103.3 fl (81-99); Monocytes # 0.2 K/mm3 (0.1-1.0); Monocytes % 5.3 % (1.7-9.3); Neutrophils # 2.9 K/mm3 (1.8-7.8); Neutrophils % 71.2 % (37.0-80.0); Platelet Count 217 K/mm3 (142-424); Red Blood Count 3.58 M/mm3 (4.20-5.40); Red Cell Distribution Width 16.7 % (11.5-17.5); White Blood Count 4.1 K/mm3 (4.8-10.8)
[2024-02-13] MEDS: BORTEZOMIB 3.5MG VIAL 1.8 MG SQ (12:30)
[2024-02-13 12:35] VITALS: BP 156/75; PULSE 81; RESP 18; TEMP 36.4; O2SAT 96
[2024-02-14 14:13] LABS: Free Kappa Lt Chains 8.1 mg/L (3.3-19.4); Free Lambda Lt Chains 766.6 mg/L (5.7-26.3)
[2024-02-14 15:18] LABS: Albumin 3.5 g/dL (2.9-4.4); Alpha-1-Globulin 0.3 g/dL (0.0-0.4); Alpha-2-Globulin 0.8 g/dL (0.4-1.0); Gamma Globulin 3.3 g/dL (0.4-1.8); Protein, Total 8.8 g/dL (6.0-8.5)
[2024-02-17 15:13] LABS: Immunoglobulin A, Qn 43 mg/dL (64-422); Immunoglobulin G, Qn 4442 mg/dL (586-1602); Immunoglobulin M, Qn 22 mg/dL (26-217)
== END 2024-02-13 12:35 | disposition home or self-care (01) ==
LOC: INF 11:12
PROVIDERS: PCP Family Medicine; Visit Provider Internal Medicine Medical Oncology
DX: D47.2 Monoclonal gammopathy (principal)
CPT/HCPCS: 36415; 80053; 82784; 83883; 84155; 84165; 85025; 86334; 96401; J9041; Q0164

== ENCOUNTER 2024-02-20 13:11 | Outpatient (CLI) | payer MEDICARE, SELFPAY ==
[2024-02-20 13:45] VITALS: BP 132/64; PULSE 100; RESP 18; TEMP 36.4; O2SAT 95
[2024-02-20] MEDS: BORTEZOMIB 3.5MG VIAL 1.8 MG SQ (13:45)
== END 2024-02-20 14:00 | disposition home or self-care (01) ==
LOC: INF 13:12
PROVIDERS: PCP Family Medicine; Visit Provider Internal Medicine Medical Oncology
DX: C90.00 Multiple myeloma not having achieved remission (principal)
CPT/HCPCS: 96401; J9041

== ENCOUNTER 2024-02-22 12:30 | Emergency (ER) | payer MEDICARE, SELFPAY ==
[2024-02-22] VITALS (7 sets, daily range): BP systolic 124–152; BP diastolic 65–89; PULSE 65–101; RESP 18–20; TEMP 36.7; O2SAT 94–96; BMI 19.8
--- NOTE | 2024-02-22 13:03 | CT_ITS ---
PROCEDURE INFORMATION: Exam: CT Chest Without Contrast; Diagnostic Exam date and time: 02/22/2024 1:31 PM Age: 78 years old Clinical indication: Injury or trauma; Fall; Blunt trauma (contusions or hematomas); Additional info: Trauma, pain L ribs/mid back TECHNIQUE: Imaging protocol: Diagnostic computed tomography of the chest without contrast. Radiation optimization: All CT scans at this facility use at least one of these dose optimization techniques: automated exposure control; mA and/or kV adjustment per patient size (includes targeted exams where dose is matched to clinical indication); or iterative reconstruction. COMPARISON: LDCTLCAS LDCT FOR LUNG CA SCREEN 03/20/2017 1:46 PM FINDINGS: Lungs: Bibasilar atelectasis versus parenchymal scarring. Pleural spaces: 2 cm x 13 mm pleural based mass anteriorly left upper lobe. This abuts the left 3rd rib. Malignancy could not be excluded. Heart: Unremarkable. No cardiomegaly. No pericardial effusion. Coronary arteries: Extensive coronary artery calcification versus stent Lymph nodes: Unremarkable. No enlarged lymph nodes. Vasculature: Regions of atherosclerotic vascular calcification involving the aortic arch. Bones/joints: Nondisplaced left anterior 3rd rib fracture. Findings suspicious for subtle nondisplaced fractures right 3rd and 4th ribs. Clinically correlate. Soft tissues: Unremarkable. IMPRESSION: 1. Nondisplaced left anterior 3rd rib fracture. 2. Findings suspicious for subtle nondisplaced fractures right 3rd and 4th ribs. Clinically correlate. 3. 2 cm x 13 mm pleural based mass anteriorly left upper lobe. This abuts the left 3rd rib. Malignancy could not be excluded.
--- NOTE | 2024-02-22 13:03 | CT_ITS ---
PROCEDURE INFORMATION: Exam: CT Cervical Spine Without Contrast Exam date and time: 02/22/2024 1:26 PM Age: 78 years old Clinical indication: Injury or trauma; Fall; Blunt trauma; Additional info: Trauma, pain L ribs/mid back TECHNIQUE: Imaging protocol: Computed tomography of the cervical spine without contrast. Radiation optimization: All CT scans at this facility use at least one of these dose optimization techniques: automated exposure control; mA and/or kV adjustment per patient size (includes targeted exams where dose is matched to clinical indication); or iterative reconstruction. COMPARISON: LDCTLCAS LDCT FOR LUNG CA SCREEN 03/20/2017 1:46 PM FINDINGS: Bones: Generalized osteopenia. Cervical spondylosis with multilevel disc degeneration. Slight degenerative anterolisthesis of C3 with respect to C4. Scoliosis of the cervical spine convexity to the right. Findings suspicious for nondisplaced fractures right anterolateral 3rd and 4th ribs. See CT thorax report for further discussion. Lungs: Lung apices are normal. Soft tissues: Unremarkable. IMPRESSION: 1. No evidence of cervical spine fracture. 2. Findings suspicious for nondisplaced fractures right anterolateral 3rd and 4th ribs. See CT thorax report for further discussion.
--- NOTE | 2024-02-22 13:03 | CT_ITS ---
PROCEDURE INFORMATION: Exam: CT Thoracic Spine Without Contrast Exam date and time: 02/22/2024 1:28 PM Age: 78 years old Clinical indication: Injury or trauma; Fall; Blunt trauma (contusions or hematomas); Additional info: Trauma, pain L ribs/mid back TECHNIQUE: Imaging protocol: Computed tomography of the thoracic spine without contrast. Radiation optimization: All CT scans at this facility use at least one of these dose optimization techniques: automated exposure control; mA and/or kV adjustment per patient size (includes targeted exams where dose is matched to clinical indication); or iterative reconstruction. COMPARISON: CT CERVICAL SPINE WO CON 02/22/2024 1:26 PM FINDINGS: Bones/joints: Generalized osteopenia. S shaped scoliosis of the thoracic spine. Primary curve convexity to the right. Mild T7 compression fracture deformity age indeterminate. Partial anterior fusion T4-T6 vertebral bodies. Soft tissues: Unremarkable. IMPRESSION: Mild T7 compression fracture deformity age indeterminate.
[2024-02-22] MEDS: METHOCARBAMOL 500MG TABLET 500 MG PO (13:09)
[2024-02-22] MEDS: KETOROLAC 30MG/ML VIAL 30 MG IM (13:09)
[2024-02-22] MEDS: LIDOCAINE 5% TRANSDERMAL PATCH 1 EACH TP (13:09)
[2024-02-22] MEDS: ACETAMINOPHEN 500MG TAB 1000 MG PO (13:09)
--- NOTE | 2024-02-22 13:57 | HMH.EDGENADL ---
Discharge Plan Disposition Patient Disposition: Home, Self-Care Condition: Good Prescriptions Prescriptions: New methocarbamol 500 mg tablet 500 mg PO Q8H PRN (Reason: pain) Qty: 20 0RF naproxen 500 mg tablet 500 mg PO BID Qty: 20 0RF lidocaine [Lidoderm] 5 % adhesive patch,medicated 1 patch topical DAILY Qty: 15 0RF Rx Instructions: leave on most painful area for up to 12 hrs hydrocodone-acetaminophen 5-325 mg tablet 1 tab PO Q8H PRN (Reason: pain) Qty: 12 0RF No Action lisinopril-hydrochlorothiazide 20-12.5 mg tablet 1 tab PO DAILY Patient Comments: TAKE 1 TABLET BY MOUTH ONCE DAILY dexamethasone 4 mg tablet 40 mg PO WEEKLY Patient Comments: TAKE 10 TABLETS BY MOUTH ONCE WEEKLY ondansetron 4 mg tablet,disintegrating 4 mg PO DAILY Patient Comments: DISSOLVE 1 TABLET IN MOUTH THREE TIMES DAILY NEEDED lenalidomide [Revlimid] 20 mg capsule 20 mg PO DIRECTED Qty: 14 0RF Rx Instructions: swallow whole with glass of water; do not open, crush, chew , break, or dissolve. Take daily for 14 days, then off med for 7 days and repeat cycle. prochlorperazine maleate [Compazine] 10 mg Tablet 10 mg PO Q6H PRN (Reason: Nausea And Vomiting) acyclovir 800 mg Tablet 800 mg PO BID ondansetron HCl 4 mg Tablet 4 mg PO Q8H PRN (Reason: Nausea) Qty: 20 0RF amlodipine 5 mg Tablet 5 mg PO DAILY oxycodone-acetaminophen [Percocet] 5-325 mg Tablet 1 tab PO Q6H PRN (Reason: scoliosis) calcium carbonate-vitamin D2 600 mg calcium- 200 unit Tablet 1 tab PO DAILY diazepam 5 mg Tablet 5 mg PO HS PRN (Reason: Anxiety) ascorbic acid (vitamin C) 25 mg Tablet 1 mg PO DAILY cholecalciferol (vitamin D3) [Vitamin D3] 10 mcg (400 unit) Capsule 10 mcg PO DAILY Centrum 18-400 mg-mcg Tablet 1 tab PO DAILY B12 5,000-100 mcg Lozenge 1 luis miguel SUBLINGUAL DAILY mirtazapine 15 mg Tablet,Disintegrating 15 mg PO HS Referrals Follow up/Referrals: Augie Betancourt MD [Primary Care Provider] - See instructions Activity Restrictions/Add. Instructions Additional Instructions/Restrictions: You were evaluated in the emergency department today. Please pickle solution maker your prescriptions at the pharmacy and take them as needed for pain. Use caution when taking Henderson, as it can be sedating, especially with other controlled substances at home. Make sure that you are not taking more than 3000 mg of acetaminophen in a day. Follow-up closely with your primary care provider for reassessment. Also follow-up with your oncologist given your newfound mass. Return to the emergency department right away for new or worsening symptoms. Use your incentive spirometer at home as instructed. Clinical Impressions Clinical Impression: Left rib fracture, Mass of left lung Instructions Patient Instructions: DI for Rib Fracture, DI for Vertebral Fracture Print Language Print Language: Kittitian Discharge ED Provider: Rebekah Bellmay General Adult HPI General Chief complaint: Back Pain/Injury Stated complaint: back and rib pain Time Seen by Provider: 02/22/24 12:44 Mode of Arrival: Ambulatory Source of Information: Patient Limitations: No Limitations Description of Symptoms (Recalled from ER Triage Doc. by RN): pt states she has hx of scoliosis and it has flared up recently after she was cleaning a closet out and a heavy object fell and she reached out to catch it. pt states it has hurt for two weeks but got worse yesterday. pt states she hurts worse in her left shoulder blade paina nd around into ribs on left side. pt denies cp, fever, nvd, and soa and states its worse upon movement History of Present Illness HPI narrative: This patient is a 78-year-old female with a history of scoliosis, multiple myeloma, and chronic back pain presenting to the emergency department for evaluation with concern for left-sided mid back/Rib pain. She states that she injured approximately 4 weeks ago when she was try to get something off of the top shelf in her closet and it fell on top of her. She did not hit her head or lose consciousness. She states that she seen her chiropractor several times since then but continues to have left posterior chest wall pain that seems to be worse today. Its worse with movements and is tender to palpation. No other concerns noted at this time, such as true chest pain, shortness of breath, abdominal pain, nausea, vomiting, changes bowel movements, numbness, tingling, or other concerns Related Data Home Medications ?Medication ?Instructions ?Recorded ?Confirmed amlodipine 5 mg tablet 5 mg PO DAILY htn 03/26/22 02/20/24 oxycodone-acetaminophen 5 mg-325 1 tab PO Q6H PRN scoliosis 03/26/22 02/20/24 mg tablet (Percocet) ascorbic acid (vitamin C) 25 mg 1 mg PO DAILY Supplement 04/18/22 02/20/24 tablet calcium carb-ergocalciferol (vit 1 tab PO DAILY Supplement 04/18/22 02/20/24 D2) 600 mg calcium-200 unit tablet cholecalciferol (vitamin D3) 10 10 mcg PO DAILY Supplement 04/18/22 02/20/24 mcg (400 unit) capsule (Vitamin D3) cyanocobalamin (B12)-cobamamide 1 luis miguel sublingual DAILY Supplement 04/18/22 02/20/24 5,000 mcg-100 mcg sublingual lozenge (B12) diazepam 5 mg tablet 5 mg PO HS PRN Anxiety 04/18/22 02/20/24 multivitamin-ferrous 1 tab PO DAILY Supplement 04/18/22 02/20/24 fumarate-folic acid 18 mg-400 mcg tablet (Centrum) lisinopril 20 1 tab PO DAILY 11/19/23 02/20/24 mg-hydrochlorothiazide 12.5 mg tablet mirtazapine 15 mg disintegrating 15 mg PO HS 11/29/23 02/20/24 tablet acyclovir 800 mg tablet 800 mg PO BID 12/12/23 02/20/24 prochlorperazine maleate 10 mg 10 mg PO Q6H PRN Nausea And 12/12/23 02/20/24 tablet (Compazine) Vomiting dexamethasone 4 mg tablet 40 mg PO WEEKLY 01/02/24 02/20/24 ondansetron 4 mg disintegrating 4 mg PO DAILY 02/13/24 02/20/24 tablet Previous Rx's ?Medication ?Instructions ?Recorded ondansetron HCl 4 mg tablet 4 mg PO Q8H PRN Nausea #20 tabs 03/17/22 lenalidomide 20 mg capsule 20 mg PO DIRECTED myeloma #14 02/05/24 (Revlimid) caps hydrocodone 5 mg-acetaminophen 325 1 tab PO Q8H PRN pain #12 tabs 02/22/24 mg tablet lidocaine 5 % topical patch 1 patch topical DAILY #15 ea 02/22/24 (Lidoderm) methocarbamol 500 mg tablet 500 mg PO Q8H PRN pain #20 tabs 02/22/24 naproxen 500 mg tablet 500 mg PO BID #20 tabs 02/22/24 Allergies Allergy/AdvReac Type Severity Reaction Status Date / Time aspirin Allergy Hives Verified 02/20/24 14:24 [facility] Disclaimer: The information contained in this section may have been updated after the patient was seen, as this information can be updated by other users. Medical History Monoclonal gammopathies Hx of scoliosis Hx of primary hypertension Surgical History History of arthroscopy of left shoulder Family History Other Family history of diabetes mellitus type II Family history of stroke Social History Smoking Status: Current every day smoker tobacco type: cigarettes packs per day: 1 alcohol intake: never substance use type: denies use current occupational status: retired Travel in the last 8 weeks: None adopted: No caregiver/support person: No foster care: No household members: none housing: apartment lives independently: Yes marital status: single education level: high school service: No assisted: No special jose needs: No agree to transfusion: No do you feel safe at home: Yes victim of physical abuse: No victim of emotional abuse: No victim of sexual abuse: No would you like helpful sources: No Other Medical History Have you received the Flu Vaccine for this season: No Have you received the Pneumonia Vaccine: Yes ROS Obtained: Yes All systems reviewed & no additional complaints except as documented Physical Exam General General appearance: alert and in no apparent distress Head Head exam: atraumatic and normocephalic Eye Eye exam: Present normal appearance, PERRL and EOMI ENT ENT exam: Present normal exam, normal oropharynx, mucous membranes moist and normal external ear exam Neck Neck exam: Present normal inspection, full ROM and trachea midline; Absent tenderness Chest Chest inspection: Present symmetric chest wall rise and tenderness (Left posterior lateral chest wall); Absent rash Respiratory Respiratory exam: Present normal lung sounds bilaterally; Absent respiratory distress, wheezes, stridor or accessory muscle use Cardiovascular Cardiovascular exam: Present regular rate and normal rhythm Abdominal Exam Abdominal exam: Present soft; Absent distention, tenderness or guarding Extremities Exam Extremities exam: Present normal inspection, full ROM and normal capillary refill; Absent tenderness or edema Back Exam Back exam: Present full ROM, tenderness (Mid thoracic spine) and paraspinal tenderness Neurological Exam Neurological exam: Present alert, oriented X3, CN II-XII intact and normal gait; Absent motor sensory deficit Psychiatric Psychiatric exam: Present normal affect and normal mood Skin Skin exam: Present warm and dry Medical Decision Making Medical Records Medical records reviewed: Yes I reviewed the patient's medical records. Screening: Per USPSTF and CDC recommendations, given the prevalence of disease in our region, it is our hospital?s policy to screen for HIV and viral Hepatitis for all patients aged 18 and over and those with ongoing risk factors. Oren Inquiry Pt receiving controlled substance: Yes Oren was queried for this patient: Yes Risks and benefits of using a controlled substance: were discussed with pt by me Vital Signs: 02/22/24 12:32 02/22/24 13:00 02/22/24 13:59 Temperature 98.0 F Temperature Source Oral Pulse Rate 81 76 Pulse Rate [Right Radial] 101 H Respiratory Rate 20 18 18 Blood Pressure 147/83 H 146/77 H Blood Pressure [Right Arm] 152/89 H Blood Pressure Mean 98 98 Blood Pressure Mean [Right Arm] 110 02 Sat by Pulse Oximetry 94 L 96 96 Oxygen Delivery Method Room Air 02/22/24 14:31 02/22/24 15:00 Temperature Temperature Source Pulse Rate 65 67 Pulse Rate [Right Radial] Respiratory Rate 18 18 Blood Pressure 124/65 148/75 H Blood Pressure [Right Arm] Blood Pressure Mean 91 85 Blood Pressure Mean [Right Arm] 02 Sat by Pulse Oximetry 96 96 Oxygen Delivery Method Lab Data Lab results reviewed: Yes I reviewed the patient's lab results. Orders (Tests/Meds): ED MEDICATIONS Discontinued Medications Generic Name Dose Route Start Last Admin Trade Name Freq PRN Reason Stop Dose Admin Acetaminophen 1,000 mg 02/22/24 13:04 02/22/24 13:09 Acetaminophen 500mg Tab PO 02/22/24 13:05 1,000 mg ONCE ONE Administration Ketorolac Tromethamine 30 mg 02/22/24 13:04 02/22/24 13:09 Ketorolac 30mg/Ml Vial IM 02/22/24 13:05 30 mg ONCE ONE Administration Lidocaine 1 each 02/22/24 13:04 02/22/24 13:09 Lidocaine 5% Transdermal Patch TP 02/22/24 13:05 1 each ONCE ONE Administration Methocarbamol 500 mg 02/22/24 13:04 02/22/24 13:09 Methocarbamol 500mg Tablet PO 02/22/24 13:05 500 mg ONCE ONE Administration Oxycodone HCl 5 mg 02/22/24 15:45 02/22/24 15:54 Oxycodone 5mg Immediate Release Tablet PO 02/22/24 15:46 5 mg ONCE ONE Administration ORDERS Category Date Time Status CT cervical spine wo con Stat Cat Scan 02/22/24 13:[address] chest wo con Stat Cat Scan 02/22/24 13:[address] thoracic spine wo con Stat Cat Scan 02/22/24 13:03 Completed Medical Decision Narrative: In summary, this patient is a 78-year-old female presenting to the Emergency Department for evaluation of left posterior chest wall pain and mid back pain. Differential diagnoses considered include but are not limited to musculoskeletal strain/pain, rib fracture, rib contusion, spine fracture, pathologic fracture. Ruling out the most morbid conditions drove assessment. It should be noted patient's history includes multiple myeloma and scoliosis which are not at goal therapy. This complicates all aspects of care by increasing patient's risk for morbidity. I reviewed patient's past medical records and noted previous evaluations by oncology for multiple myeloma in the past. On exam, the patient is well-appearing with reproducible pain on her left posterior lateral chest wall and mid thoracic spine. Otherwise, her exam is reassuring without appreciable abnormality. Workup included CT C/T-spine as well as CT chest without contrast. Patient was given IM Toradol, oral Tylenol, oral Robaxin, and topical Lidoderm patch for symptomatic improvement. I independently interpreted CT scan prior to the radiologist read and noted nondisplaced rib fractures. Please see their read for final interpretation. They noted concerns for pleural mass as well as T7 compression fracture. I notified patient of all these findings. She had some improvement after administration of pain control and she is able to pull 1000 cc on incentive spirometry. Vitals are normal on cardiac telemetry with no hypoxia or tachycardia. The rib fractures of likely been there for 4 weeks since her pain has been going on for that time after known injury. I considered admission for monitoring however given her exam is reassuring and her injury is chronic, I do not feel that it would likely change outcome. I did give the patient oral oxycodone for continued pain. At this time, I feel that she is appropriate for discharge home with close follow-up with both her oncologist as well as her primary care provider. She expressed understanding agreement. She was given prescriptions for multimodal pain control as well as instructions for cautious use. She was given incentive spirometer to go home with as well as strict return precautions. She was discharged after all questions were answered Critical Care Critical Care Time Critical Care Time: No
--- NOTE | 2024-02-22 14:05 | PC.NURSE ---
Rounded on patient, tech took patient a warm blanket per the patients request.
--- NOTE | 2024-02-22 15:05 | PC.NURSE ---
patient did 1000 on incentive spirometery
[2024-02-22] MEDS: OXYCODONE 5MG IMMEDIATE RELEASE TABLET 5 MG PO (15:54)
== END 2024-02-22 16:02 | disposition home or self-care (01) ==
PROVIDERS: Emergency Provider Emergency Medicine; PCP Family Medicine
DX: M54.9 Dorsalgia, unspecified (principal); R91.8 Other nonspecific abnormal finding of lung field; S22.32XA Fracture of one rib, left side, initial encounter for closed fracture; W20.8XXA Other cause of strike by thrown, projected or falling object, initial encounter; Y93.9 Activity, unspecified; Y92.008 Other place in unspecified non-institutional (private) residence as the place of occurrence of the external cause
CPT/HCPCS: 71250; 72125; 72128; 96372; 99283; J1885

== ENCOUNTER 2024-02-27 12:46 | Outpatient (CLI) | payer MEDICARE, SELFPAY ==
[2024-02-27 13:15] VITALS: BP 130/80; PULSE 89; RESP 18; O2SAT 94
[2024-02-27] MEDS: BORTEZOMIB 3.5MG VIAL 1.8 MG SQ (13:15)
--- NOTE | 2024-02-27 14:06 | PC.NURSE ---
1250-PT ARRIVED TO INFUSION DEPARTMENT IN WHEELCHAIR, BEING PUSHED BY A FRIEND. PT FAVORING LEFT ARM WITH PILLOW BETWEEN ARM AND RIBS. STATES SHE HAD BEEN HAVING LEFT RIB AND BACK PAIN FOR A COUPLE WEEKS AND IT GOT SO BAD OVER THE WEEKEND THAT SHE WAS BROUGHT TO THE ED AND SCANS REVEALED SHE HAD 2 CRACKED RIBS. SHE RECEIVED ORAL PAIN MEDS AND IS TAKING THEM AT HOME WITH LITTLE RELIEF. ALSO STATES THAT SHE HAS LET HER PCP KNOW. ENCOURAGED PT TO CONTINUE TAKING PAIN MEDS PRESCRIBED AND USE INCENTIVE SPIROMETER ORDERED IN ED AND IF PAIN CONTINUES TO GET WORSE, TO RETURN TO ED FOR FURTHER PAIN RELIEF. UNDERSTANDING VERBALIZED.
== END 2024-02-27 13:30 | disposition home or self-care (01) ==
LOC: INF 12:49
PROVIDERS: PCP Family Medicine; Visit Provider Internal Medicine Medical Oncology
DX: C90.00 Multiple myeloma not having achieved remission (principal)
CPT/HCPCS: 96401; J9041

== ENCOUNTER 2024-03-05 12:26 | Outpatient (CLI) | payer MEDICARE, SELFPAY ==
[2024-03-05 12:31] VITALS: BMI 19.8
[2024-03-05 12:51] LABS: Eosinophils % 0.2 % (0.1-12.0); Lymphocytes # 0.7 K/mm3 (0.7-4.5); Lymphocytes % 12.8 % (10-50); Mean Corpuscular HGB Conc 31.8 g/dL (31.8-35.4); Mean Corpuscular Hemoglobin 31.3 pg (27.0-31.2); Mean Corpuscular Volume 98.4 fl (81-99); Mean Platelet Volume 9.3 fl (7.4-10.4); Monocytes # 0.1 K/mm3 (0.1-1.0); Monocytes % 2.4 % (1.7-9.3); Neutrophils # 4.5 K/mm3 (1.8-7.8); Neutrophils % 84.5 % (37.0-80.0); Platelet Count 273 K/mm3 (142-424); Red Blood Count 2.03 M/mm3 (4.20-5.40); Red Cell Distribution Width 16.9 % (11.5-17.5); White Blood Count 5.3 K/mm3 (4.8-10.8)
[2024-03-05 12:54] LABS: Hemoglobin 6.4 g/dL (12.2-16.2)
[2024-03-05 12:55] LABS: Albumin Level 3.4 g/dl (3.5-5.0); Chloride 105 mmol/L (98-107); Sodium 137 mmol/L (136-145)
[2024-03-05 12:56] LABS: Potassium 3.9 mmoL/L (3.5-5.1)
[2024-03-05 12:58] LABS: Alanine Aminotransferase 39 U/L (12-78); Albumin/Globulin Ratio 0.9 (1.1-1.8); Alkaline Phosphatase 61 U/L (38-126); Anion Gap 6.9 mEq/L (5-15); Aspartate Amino Transferase 41 U/L (14-36); Bilirubin,Total 0.4 mg/dl (0.2-1.3); Blood Urea Nitrogen 35 mg/dl (7-17); Carbon Dioxide 29 mmol/L (22.0-30.0); Creatinine Clearance Estimated 32 mL/min (50-200); Estimated Glomerular Filt Rate 69 ml/min (>60); GFR (African American) 84 ML/MIN (>60); Globulin 3.8 g/dL (1.3-3.2); Total Protein,Serum 7.2 g/dl (6.3-8.2)
[2024-03-05 12:59] LABS: Calcium 8.9 mg/dl (8.4-10.2); Glucose 130 mg/dl (74-100)
[2024-03-06 14:13] LABS: Albumin 2.6 g/dL (2.9-4.4); Alpha-1-Globulin 0.4 g/dL (0.0-0.4); Alpha-2-Globulin 0.9 g/dL (0.4-1.0); Gamma Globulin 2.2 g/dL (0.4-1.8); Protein, Total 6.9 g/dL (6.0-8.5)
[2024-03-09 14:11] LABS: Immunoglobulin A, Qn 42 mg/dL (64-422); Immunoglobulin G, Qn 2750 mg/dL (586-1602); Immunoglobulin M, Qn 13 mg/dL (26-217)
== END 2024-03-05 12:40 | disposition home or self-care (01) ==
LOC: INF 12:27
PROVIDERS: PCP Family Medicine; Visit Provider Internal Medicine Medical Oncology
DX: C90.00 Multiple myeloma not having achieved remission (principal)
CPT/HCPCS: 36415; 80053; 82784; 84155; 84165; 85025; 86334

== ENCOUNTER 2024-03-06 09:01 | Outpatient (CLI) | payer MEDICARE, SELFPAY ==
[2024-03-06] VITALS (19 sets, daily range): BP systolic 114–150; BP diastolic 62–89; PULSE 75–99; RESP 16; TEMP 36.3–36.6; O2SAT 97–98; BMI 19.8
[2024-03-06] MEDS: 0.9 % SODIUM CHLORIDE 250 ML 25 ML IV (10:41)
[2024-03-06 16:06] LABS: Iron 64 ug/dL (37-170)
[2024-03-06 16:16] LABS: Total Iron Binding Capacity 263 ug/dL (265-497)
[2024-03-06 16:44] LABS: Ferritin 129 ng/ml (11.1-264)
== END 2024-03-06 16:36 | disposition home or self-care (01) ==
LOC: INF 09:02
PROVIDERS: PCP Family Medicine; Visit Provider Internal Medicine Medical Oncology
DX: C90.00 Multiple myeloma not having achieved remission (principal)
CPT/HCPCS: 36415; 36430; 82728; 83540; 83550; 86850; P9016

== ENCOUNTER 2024-03-09 23:13 | Emergency (ER) | payer MEDICARE, SELFPAY ==
[2024-03-09 23:13] VITALS: BP 112/66; PULSE 100; RESP 26; TEMP 36.6; O2SAT 97; BMI 19.1
--- NOTE | 2024-03-09 23:24 | CT_ITS ---
PROCEDURE INFORMATION: Exam: CT Abdomen And Pelvis With Contrast Exam date and time: 03/10/2024 12:16 AM Age: 78 years old Clinical indication: Abdominal pain; Additional info: Bilat upper abd pain, m. Myeloma, recent rib fxs TECHNIQUE: Imaging protocol: Computed tomography of the abdomen and pelvis with contrast. 3D rendering (Not supervised by radiologist): MIP and/or 3D reconstructed images were created by the technologist. Radiation optimization: All CT scans at this facility use at least one of these dose optimization techniques: automated exposure control; mA and/or kV adjustment per patient size (includes targeted exams where dose is matched to clinical indication); or iterative reconstruction. Contrast material: ISOVUE; Contrast volume: 75 ml; Contrast route: IV; COMPARISON: CT ABDOMEN PELVIS W CON 03/04/2023 9:16 AM FINDINGS: Liver: Normal. No mass. Gallbladder and biliary ducts: Normal. No calcified stones. No ductal dilation. Pancreas: Normal. No ductal dilation. Spleen: Normal. No splenomegaly. Adrenal glands: Normal. No mass. Kidneys and ureters: Normal. No hydronephrosis. Stomach and bowel: Majority Of the small bowel is decompressed. In the coronal plane, there is a potential colonic lesion seen best on series 4, image 23. Coronal series. There may be a colon mass at this point. Appendix: No evidence of appendicitis. Intraperitoneal space: Free peritoneal gas is seen in the upper abdomen. The source of the free peritoneal gas is not immediately apparent. There is free peritoneal fluid seen in the low dependent pelvis increased since the previous examination. Vasculature: Unremarkable. No abdominal aortic aneurysm. Lymph nodes: Unremarkable. No enlarged lymph nodes. Urinary bladder: Unremarkable as visualized. Reproductive: Unremarkable as visualized. Bones/joints: Congenital sacral fusion anomaly Soft tissues: Unremarkable. IMPRESSION: 1. Interval development of free peritoneal gas and a small amount of free peritoneal fluid. The exact source of this gas is not immediately clear, but there is a transition of dilated colon to decompressed colon which occurs at the distal transverse colon. Underlying colonic lesion may be present. Perforated bowel should be assumed. 2. Incidental findings above THIS REPORT CONTAINS FINDINGS THAT MAY BE CRITICAL TO PATIENT CARE. The findings were verbally communicated via telephone conference with Darion Hernandez at 1:21 AM EDT on 03/10/2024. The findings were acknowledged and understood.
[2024-03-09] MEDS: METHOCARBAMOL 500MG TABLET 500 MG PO (23:29)
[2024-03-09] MEDS: MORPHINE 4MG/ML SYRINGE 4 MG IV (23:29)
[2024-03-09 23:30] VITALS: BP 110/93; PULSE 96; O2SAT 97
[2024-03-09 23:34] LABS: Basophils % 0.1 % (0.1-2.0); Eosinophils % 0.3 % (0.1-12.0); Hematocrit 24.8 % (37.0-47.0); Hemoglobin 8.2 g/dL (12.2-16.2); Lymphocytes % 13.3 % (10-50); Mean Corpuscular HGB Conc 33.2 g/dL (31.8-35.4); Mean Corpuscular Hemoglobin 30.9 pg (27.0-31.2); Mean Platelet Volume 8.1 fl (7.4-10.4); Monocytes # 0.3 K/mm3 (0.1-1.0); Monocytes % 3.8 % (1.7-9.3); Neutrophils # 6.2 K/mm3 (1.8-7.8); Neutrophils % 82.5 % (37.0-80.0); Platelet Count 453 K/mm3 (142-424); Red Blood Count 2.66 M/mm3 (4.20-5.40); Red Cell Distribution Width 16.4 % (11.5-17.5); White Blood Count 7.5 K/mm3 (4.8-10.8)
[2024-03-09 23:40] LABS: Alanine Aminotransferase 21 U/L (12-78); Albumin/Globulin Ratio 0.8 (1.1-1.8); Alkaline Phosphatase 58 U/L (38-126); Anion Gap 5.9 mEq/L (5-15); Aspartate Amino Transferase 27 U/L (14-36); Bilirubin,Total 0.6 mg/dl (0.2-1.3); Blood Urea Nitrogen 32 mg/dl (7-17); Calcium 8.2 mg/dl (8.4-10.2); Carbon Dioxide 27 mmol/L (22.0-30.0); Chloride 104 mmol/L (98-107); Creatinine Clearance Estimated 31 mL/min (50-200); Estimated Glomerular Filt Rate 81 ml/min (>60); GFR (African American) 98 ML/MIN (>60); Globulin 3.9 g/dL (1.3-3.2); Glucose 124 mg/dl (74-100); Lipase 27 U/L (23-300); Potassium 3.9 mmoL/L (3.5-5.1); Sodium 133 mmol/L (136-145); Total Protein,Serum 6.9 g/dl (6.3-8.2)
--- NOTE | 2024-03-09 23:41 | ED_ITS ---
Discharge Plan Disposition Patient Disposition: Xfer Other Prescriptions Prescriptions: No Action lisinopril-hydrochlorothiazide 20-12.5 mg tablet 1 tab PO DAILY Patient Comments: TAKE 1 TABLET BY MOUTH ONCE DAILY dexamethasone 4 mg tablet 40 mg PO WEEKLY Patient Comments: TAKE 10 TABLETS BY MOUTH ONCE WEEKLY ondansetron 4 mg tablet,disintegrating 4 mg PO DAILY Patient Comments: DISSOLVE 1 TABLET IN MOUTH THREE TIMES DAILY NEEDED lenalidomide [Revlimid] 20 mg capsule 20 mg PO DIRECTED Qty: 14 0RF Rx Instructions: swallow whole with glass of water; do not open, crush, chew , break, or dissolve. Take daily for 14 days, then off med for 7 days and repeat cycle. prochlorperazine maleate [Compazine] 10 mg Tablet 10 mg PO Q6H PRN (Reason: Nausea And Vomiting) acyclovir 800 mg Tablet 800 mg PO BID ondansetron HCl 4 mg Tablet 4 mg PO Q8H PRN (Reason: Nausea) Qty: 20 0RF amlodipine 5 mg Tablet 5 mg PO DAILY oxycodone-acetaminophen [Percocet] 5-325 mg Tablet 1 tab PO Q6H PRN (Reason: scoliosis) calcium carbonate-vitamin D2 600 mg calcium- 200 unit Tablet 1 tab PO DAILY diazepam 5 mg Tablet 5 mg PO HS PRN (Reason: Anxiety) ascorbic acid (vitamin C) 25 mg Tablet 1 mg PO DAILY cholecalciferol (vitamin D3) [Vitamin D3] 10 mcg (400 unit) Capsule 10 mcg PO DAILY Centrum 18-400 mg-mcg Tablet 1 tab PO DAILY B12 5,000-100 mcg Lozenge 1 luis miguel SUBLINGUAL DAILY mirtazapine 15 mg Tablet,Disintegrating 15 mg PO HS methocarbamol 500 mg tablet 500 mg PO Q8H PRN (Reason: pain) Qty: 20 0RF naproxen 500 mg tablet 500 mg PO BID Qty: 20 0RF lidocaine [Lidoderm] 5 % adhesive patch,medicated 1 patch topical DAILY Qty: 15 0RF Rx Instructions: leave on most painful area for up to 12 hrs hydrocodone-acetaminophen 5-325 mg tablet 1 tab PO Q8H PRN (Reason: pain) Qty: 12 0RF Referrals Follow up/Referrals: Augie Betancourt MD [Primary Care Provider] - See instructions Clinical Impressions Clinical Impression: Bowel perforation, Acute non-ST elevation myocardial infarction (NSTEMI) Stand Alone Forms Stand Alone Forms: Transfer Record - ED Print Language Print Language: Persian Discharge ED Provider: Darion Hernandez Adult HPI General Chief complaint: PAIN Stated complaint: L rib pain, known fx 4 wk ago Time Seen by Provider: 03/09/24 23:15 Mode of Arrival: EMS Source of Information: Patient Limitations: Physical Limitations Description of Symptoms (Recalled from ER Triage Doc. by RN): Pt presents to ED via EMS for pain. Pt states she broke ribs in a fall on 02/24 and she's also a cancer patient that receives chemo. Pt states she had no injuries today. Pt is yelling and agitated at this time. Pt is A&O*4. History of Present Illness HPI narrative: 78-year-old female with history of multiple myeloma on therapy presents for abdominal pain and chest pain. She reports that she was seen about a month ago with a compression fracture of the spine and rib fractures and has been on pain medications for that. She reports it feels like that but is just much worse. She also reports that she has been constipated for the last 4 days but started having bowel movements today, reports there was some fresh blood in it. Patient received a hemoglobin transfusion last week for the first time. Related Data Home Medications ?Medication ?Instructions ?Recorded ?Confirmed amlodipine 5 mg tablet 5 mg PO DAILY htn 03/26/22 03/06/24 oxycodone-acetaminophen 5 mg-325 1 tab PO Q6H PRN scoliosis 03/26/22 03/06/24 mg tablet (Percocet) ascorbic acid (vitamin C) 25 mg 1 mg PO DAILY Supplement 04/18/22 03/06/24 tablet calcium carb-ergocalciferol (vit 1 tab PO DAILY Supplement 04/18/22 03/06/24 D2) 600 mg calcium-200 unit tablet cholecalciferol (vitamin D3) 10 10 mcg PO DAILY Supplement 04/18/22 03/06/24 mcg (400 unit) capsule (Vitamin D3) cyanocobalamin (B12)-cobamamide 1 luis miguel sublingual DAILY Supplement 04/18/22 03/06/24 5,000 mcg-100 mcg sublingual lozenge (B12) diazepam 5 mg tablet 5 mg PO HS PRN Anxiety 04/18/22 03/06/24 multivitamin-ferrous 1 tab PO DAILY Supplement 04/18/22 03/06/24 fumarate-folic acid 18 mg-400 mcg tablet (Centrum) lisinopril 20 1 tab PO DAILY 11/19/23 03/06/24 mg-hydrochlorothiazide 12.5 mg tablet mirtazapine 15 mg disintegrating 15 mg PO HS 11/29/23 03/06/24 tablet acyclovir 800 mg tablet 800 mg PO BID 12/12/23 03/06/24 prochlorperazine maleate 10 mg 10 mg PO Q6H PRN Nausea And 12/12/23 03/06/24 tablet (Compazine) Vomiting dexamethasone 4 mg tablet 40 mg PO WEEKLY 01/02/24 03/06/24 ondansetron 4 mg disintegrating 4 mg PO DAILY 02/13/24 03/06/24 tablet Previous Rx's ?Medication ?Instructions ?Recorded ondansetron HCl 4 mg tablet 4 mg PO Q8H PRN Nausea #20 tabs 03/17/22 lenalidomide 20 mg capsule 20 mg PO DIRECTED myeloma #14 02/05/24 (Revlimid) caps hydrocodone 5 mg-acetaminophen 325 1 tab PO Q8H PRN pain #12 tabs 02/22/24 mg tablet lidocaine 5 % topical patch 1 patch topical DAILY #15 ea 02/22/24 (Lidoderm) methocarbamol 500 mg tablet 500 mg PO Q8H PRN pain #20 tabs 02/22/24 naproxen 500 mg tablet 500 mg PO BID #20 tabs 02/22/24 Allergies Allergy/AdvReac Type Severity Reaction Status Date / Time aspirin Allergy Hives Verified 03/06/24 10:01 [facility] Disclaimer: The information contained in this section may have been updated after the patient was seen, as this information can be updated by other users. Medical History Monoclonal gammopathies Hx of scoliosis Hx of primary hypertension Surgical History History of arthroscopy of left shoulder Family History Other Family history of diabetes mellitus type II Family history of stroke Social History (Updated 03/06/24 @ 10:00 by Ramón Montes De Oca, RN) Smoking Status: Current every day smoker tobacco type: cigarettes packs per day: 1 alcohol intake: never substance use type: denies use current occupational status: retired Travel in the last 8 weeks: None adopted: No caregiver/support person: No foster care: No household members: none housing: apartment lives independently: Yes marital status: single education level: high school service: No residential: No special jose needs: No agree to transfusion: No do you feel safe at home: Yes victim of physical abuse: No victim of emotional abuse: No victim of sexual abuse: No would you like helpful sources: No Other Medical History Have you received the Flu Vaccine for this season: No Have you received the Pneumonia Vaccine: Yes ROS Obtained: Yes All systems reviewed & no additional complaints except as documented Physical Exam General General appearance: alert and in distress Head Head exam: atraumatic and normocephalic Eye Eye exam: Present normal appearance, PERRL and EOMI ENT ENT exam: Present normal oropharynx and normal external ear exam Neck Neck exam: Present normal inspection and full ROM Chest Chest inspection: Present normal inspection, symmetric chest wall rise and tenderness (Severe, generalized) Respiratory Respiratory exam: Present normal lung sounds bilaterally; Absent respiratory distress Cardiovascular Cardiovascular exam: Present regular rate and normal rhythm Abdominal Exam Abdominal exam: Present soft, tenderness (Severe, generalized, worse in the upper abdomen) and guarding; Absent distention Extremities Exam Extremities exam: Present normal inspection; Absent edema or joint swelling Back Exam Back exam: Present normal inspection; Absent tenderness Neurological Exam Neurological exam: Present alert and oriented X3; Absent motor sensory deficit Psychiatric Psychiatric exam: Present anxious Skin Skin exam: Present warm, dry and normal color Lymphatic Lymphatic Findings: no adenopathy Medical Decision Making Medical Records Medical records reviewed: Yes I reviewed the patient's medical records. Screening: Per USPSTF and CDC recommendations, given the prevalence of disease in our region, it is our hospital?s policy to screen for HIV and viral Hepatitis for all patients aged 18 and over and those with ongoing risk factors. Oren Inquiry Pt receiving controlled substance: No Oren was queried for this patient: No Vital Signs: 03/09/24 23:13 03/09/24 23:30 03/10/24 00:00 Temperature 97.9 F Temperature Source Oral Pulse Rate 96 H 85 Pulse Rate [Left] 100 H Respiratory Rate 26 H 36 H Blood Pressure 110/93 H 91/50 L Blood Pressure [Right Arm] 112/66 Blood Pressure Mean [Right Arm] 81 02 Sat by Pulse Oximetry 97 97 93 L Oxygen Delivery Method Room Air Room Air Room Air Oxygen Flow Rate (LPM) 03/10/24 00:20 03/10/24 00:30 03/10/24 00:45 Temperature Temperature Source Pulse Rate 90 89 90 Pulse Rate [Left] Respiratory Rate 15 22 21 Blood Pressure 127/64 116/70 98/60 L Blood Pressure [Right Arm] Blood Pressure Mean [Right Arm] 02 Sat by Pulse Oximetry 93 L 94 L 95 Oxygen Delivery Method Room Air Room Air Room Air Oxygen Flow Rate (LPM) 03/10/24 00:46 03/10/24 01:00 Temperature Temperature Source Pulse Rate 91 H 84 Pulse Rate [Left] Respiratory Rate 17 19 Blood Pressure 103/57 L 94/48 L Blood Pressure [Right Arm] Blood Pressure Mean [Right Arm] 02 Sat by Pulse Oximetry 94 L 95 Oxygen Delivery Method Room Air Nasal Cannula Oxygen Flow Rate (LPM) 2 Lab Data Lab results reviewed: Yes I reviewed the patient's lab results. Lab Results 03/09/24 23:23: WBC 7.5, RBC 2.66 L, Hgb 8.2 L, Hct 24.8 L, MCV 93.0, MCH 30.9, MCHC 33.2, RDW 16.4, Plt Count 453 H, MPV 8.1, Neut % (Auto) 82.5 H, Lymph % (Auto) 13.3, Hamilton % (Auto) 3.8, Eos % (Auto) 0.3, Baso % (Auto) 0.1, Neut # (Auto) 6.2, Lymph # (Auto) 1.0, Hamilton # (Auto) 0.3, Eos # (Auto) 0.0, Baso # (Auto) 0.0, Sodium 133 L, Potassium 3.9, Chloride 104, Carbon Dioxide 27, Anion Gap 5.9, BUN 32 H, Creatinine 0.70, Estimated Creat Clear 31, Estimated GFR 81, Est GFR ( Amer) 98, Glucose 124 H, Calcium 8.2 L, Total Bilirubin 0.6, AST 27, ALT 21, Alkaline Phosphatase 58, Troponin I 0.07 H, Total Protein 6.9, A lbumin 3.0 L, Globulin 3.9 H, Albumin/Globulin Ratio 0.8 L, Lipase 27, HIV 1&2 Antibody Rapid Nonreactive 03/09/24 23:23 03/09/24 23:23 Orders (Tests/Meds): ED MEDICATIONS Generic Name Dose Route Start Last Admin Trade Name Harjitq PRN Reason Stop Dose Admin Piperacillin Sod/Tazobactam 100 mls @ 200 mls/hr 03/10/24 01:37 03/10/24 01:42 Sod 4.5 gm/ Sodium Chloride IV 03/10/24 02:06 200 mls/hr ONCE ONE Administration Ketorolac Tromethamine 30 mg 03/09/24 23:57 03/10/24 00:01 Ketorolac 30mg/Ml Vial IV 03/09/24 23:58 30 mg ONCE ONE Administration Sodium Chloride 10 ml 03/10/24 00:20 03/10/24 00:21 Sodium Chloride 0.9% 10ml Syr (Rad Only) IV 04/09/24 00:19 10 ml NEEDED PRN Administration Maintain IV Site Discontinued Medications Generic Name Dose Route Start Last Admin Trade Name Harjitq PRN Reason Stop Dose Admin Diazepam 5 mg 03/10/24 00:48 03/10/24 00:55 Diazepam 10mg/2ml Syringe IV 03/10/24 00:49 5 mg ONCE ONE Administration Hydromorphone HCl 0.25 mg 03/10/24 00:33 03/10/24 00:36 Hydromorphone 2mg/Ml Syringe IV 03/10/24 00:34 0.25 mg ONCE ONE Administration Lactated Ringer's 1,000 mls @ 999 mls/hr 03/10/24 00:45 03/10/24 00:36 Lactated Ringer's 1000 Ml Bag IV 03/10/24 01:45 999 mls/hr .Q1H1M CHITRA Administration Iopamidol 75 ml 03/10/24 00:20 03/10/24 00:21 Iopamidol-370 (76%);100ml Bottle IV 03/10/24 00:21 75 ml ONCE ONE Administration Methocarbamol 500 mg 03/09/24 23:25 03/09/24 23:29 Methocarbamol 500mg Tablet PO 03/09/24 23:26 500 mg ONCE ONE Administration Miscellaneous 1 each 03/10/24 00:15 03/10/24 00:30 Pha To Nursing Instruction NOTAPPLIC 03/10/24 00:16 1 each ONCE ONE Administration Morphine Sulfate 4 mg 03/09/24 23:25 03/09/24 23:29 Morphine 4mg/Ml Syringe IV 03/09/24 23:26 4 mg ONCE ONE Administration ORDERS Category Date Time Status CT abdomen pelvis w con Stat Cat Scan 03/09/24 23:[address] angio chest PE protocol Stat Cat Scan 03/10/24 00:11 Completed CBC w/Auto Diff [Complete Blood Count Auto Diff] Stat Lab 03/09/24 23:23 Completed CMP [Comprehensive Metabolic Panel] Stat Lab 03/09/24 23:23 Completed HIV (1&2) Antibody Rapid Stat Lab 03/09/24 23:23 Completed Hep C Ab with Reflex to RNA Stat Lab 03/09/24 23:23 Received Lipase Stat Lab 03/09/24 23:23 Completed Trop I [Troponin I] Stat Lab 03/09/24 23:23 Completed Troponin I Q3H Lab 03/10/24 02:45 Ordered Troponin I Q3H Lab 03/10/24 05:45 Ordered ECG Data Tracing #1: I reviewed this ECG and interpreted as documented below: Sinus rhythm, rate of 67,subtle ST depression in the inferior leads. ECG initial impression date: 03/09/24 ECG initial impression time: 23:44 Tracing #2: I reviewed this ECG and interpreted as documented below: Sinus rhythm, rate of 81, previously seen ST depressions appear improved. No acute ST elevation. ECG initial impression date: 03/10/24 ECG initial impression time: 01:17 HEART Score History (anamnesis): Slightly suspicious ECG: Significant ST-deviation Age: >65 years Risk factors: 1-2 risk factors Troponin: 1-3x normal limit HEART Score: 6 Medical Decision Narrative: 78-year-old female with history of multiple myeloma on therapy, history of recent rib fractures and thoracic compression fracture presents for worsening upper abdominal pain. Reports recent constipation with last several days with some blood in her stool today.. History was obtained via interactive discussion with patient, family, chart review. On arrival, patient is afebrile, hemodynamically stable, in acute distress secondary to pain., moving all extremities spontaneously. Full physical exam performed and significant for severe abdominal tenderness. Differential includes but is not limited to worsening bony disease from multiple myeloma, bowel obstruction, pancreatitis, cholecystitis, ACS, PE. Patient was given multiple doses of opiates as well as Toradol and Versed for symptomatic management and correction of underlying abnormalities. Patient required a liter of fluids because she became hypotensive after opiates. Workup initiated including CBC CMP troponin EKG CT PE, CT abdomen and pelvis with contrast. On re-evaluation, patient continues to have severe pain. Laboratory workup independently interpreted by me and significant for anemia, improved from prior, no significant leukocytosis, thrombocytosis noted, no significant electrolyte derangement. Patient's initial troponin is elevated at 0.07, twice the upper limit of normal.. Imaging independently interpreted by me and significant for intra-abdominal free air with concern for possible colonic transition point. See radiology read for full review of final results. Given patient history, exam and workup, patient's presentation most likely represents this bowel perforation, likely colon based on patient's history of recent constipation and bloody stools as well as inflammation and possible transition point noted on CT imaging. I spoke to the patient and her family about these findings. I explained that this is life-threatening and she will not survive if she does not have emergency surgery. She is DNR and DNI, but wishes to proceed with emergency surgery and is okay with receiving appropriate perioperative care. I called our general surgeon Dr. Spaulding who reports that he does not feel comfortable performing this operation at our facility at this time given her active malignancy, NSTEMI and immunocompromise. Recommends transfer. We immediately called the [facility] for transfer. She was accepted by Dr. Jay. The patient was flown to the emergency contact emergently for further assessment. Procedures Risk/Benefits of Procedure(s) Were Explained: Yes Critical Care Critical Care Time Critical Care Time: Yes Attestation: On 03/09/24, the high probability of a clinically significant, sudden or life threatening deterioration of the following system(s) required my full and direct attention, intervention and personal management. The time I documented below is in addition to time spent performing reported procedures but includes the following listed in this critical care notation. Total Time Total Critical Care Time: 65
--- NOTE | 2024-03-09 23:44 | ECG_ITS ---
APPROVED REPORT Exam: Resting ECG HR:67 bpm ECG Measurements Heart Rate 67 AXES [place] 156 P 64 QRSd 105 QRS 52 QT 407 T 64 QTc 423 Conclusion SINUS RHYTHM MODERATE ST DEPRESSION [0.05+ mV ST DEPRESSION] ABNORMAL ECG UNCONFIRMED REPORT Electronically signed by : SUKHI DO, 03/10/2024 06:26:12
[2024-03-10] VITALS (11 sets, daily range): BP systolic 91–130; BP diastolic 46–73; PULSE 73–91; RESP 15–36; TEMP 36.6; O2SAT 93–100
[2024-03-10 00:01] LABS: Troponin I 0.07 ng/ml (0.00-0.034)
[2024-03-10] MEDS: KETOROLAC 30MG/ML VIAL 30 MG IV (00:01)
--- NOTE | 2024-03-10 00:11 | CT_ITS ---
PROCEDURE INFORMATION: Exam: CTA Chest With Contrast Exam date and time: 03/10/2024 12:16 AM Age: 78 years old Clinical indication: Pain; Chest pressure; Additional info: Cp TECHNIQUE: Imaging protocol: Computed tomographic angiography of the chest with contrast. Exam focused on the arteries. 3D rendering (Not supervised by radiologist): MIP and/or 3D reconstructed images were created by the technologist. Radiation optimization: All CT scans at this facility use at least one of these dose optimization techniques: automated exposure control; mA and/or kV adjustment per patient size (includes targeted exams where dose is matched to clinical indication); or iterative reconstruction. Contrast material: ISOVUE; Contrast volume: 75 ml; Contrast route: INTRAVENOUS (IV); COMPARISON: CT CHEST WO CON 02/22/2024 1:31 PM FINDINGS: Pulmonary arteries: Normal. No pulmonary emboli. Aorta: Unremarkable. No aortic aneurysm. No aortic dissection. Lungs: Mild emphysema bilateral upper lobes. Pleural spaces: No pleural effusion. Heart: cardiomegaly. Coronary arteries: Coronary artery calcifications. Calcified coronary arteries. Lymph nodes: Unremarkable. No enlarged lymph nodes. Bones/joints: Chronic thoracic deformity caused by S shaped curvature and multilevel facet fusion. There is a compression deformity of the inferior aspect of the S curve shows relative interval increased sclerosis. Probably T7 vertebral body. Abnormal pleural-based masses seen on axial plane image series 5:56 with adjacent rib cortical erosions. Soft tissues: Unremarkable. Other findings: Ascending mild thoracic ectasia. IMPRESSION: 1. No CT evidence of acute pulmonary embolus. 2. Pleural-based mass previously described as associated with erosions and therefore very likely malignant. 3. T7 level compression deformity has worsened. 4. Extensive probably congenital upper thoracic scoliosis
[2024-03-10 00:20] LABS: HIV (1&2) Antibody Rapid NONREACTIVE (NONREACTIVE)
[2024-03-10] MEDS: IOPAMIDOL-370 (76%);100ML BOTTLE 75 ML IV (00:21)
[2024-03-10] MEDS: SODIUM CHLORIDE 0.9% 10ML SYR (RAD ONLY) 10 ML IV (00:21)
--- NOTE | 2024-03-10 00:28 | PC.NURSE ---
Dr. Navarro at bedside
[2024-03-10] MEDS: PHA TO NURSING INSTRUCTION 1 EACH NOTAPPLIC (00:30)
[2024-03-10] MEDS: LACTATED RINGERS 1000ML 1,000 ML 999 ML IV (00:36)
[2024-03-10] MEDS: HYDROMORPHONE 2MG/ML SYRINGE 0.25 MG IV ×2 (00:36→02:28)
[2024-03-10] MEDS: diazePAM 10MG/2ML SYRINGE 5 MG IV (00:55)
--- NOTE | 2024-03-10 00:56 | PC.NURSE ---
Dr. sAia quisped, on phone with ED doctor now
--- NOTE | 2024-03-10 01:01 | PC.NURSE ---
After medication, pt became sleepy and desat to 80%. Placed pt on 3LPM NC
--- NOTE | 2024-03-10 01:17 | ECG_ITS ---
APPROVED REPORT Exam: Resting ECG HR:81 bpm ECG Measurements Heart Rate 81 AXES LA 163 P 58 QRSd 121 QRS 31 QT 394 T 37 QTc 431 Conclusion SINUS RHYTHM PROBABLE INFERIOR MYOCARDIAL INFARCTION , PROBABLY OLD [35 ms Q WAVE IN II/aVF] ABNORMAL ECG UNCONFIRMED REPORT Electronically signed by : SUKHI DO, 03/10/2024 06:26:04
--- NOTE | 2024-03-10 01:23 | PC.NURSE ---
Dr. Spaulding pageeverett
--- NOTE | 2024-03-10 01:31 | PC.NURSE ---
spoke to [facility] 's re transfer to their facility
[2024-03-10] MEDS: PIPERACILLIN/TAZO 4.5 GM in 0.9 % SODIUM CHLORIDE 100 ML IV (01:42)
--- NOTE | 2024-03-10 01:44 | PC.NURSE ---
[facility] accepted, approx. 22 mins until arrival
--- NOTE | 2024-03-10 01:50 | PC.NURSE ---
Dr. Hernandez on phone with
[2024-03-11 09:20] LABS: HCV Ab Non Reactive (Non Reactive)
== END 2024-03-10 02:31 | disposition other institution (70) ==
LOC: ER 23:48 → 2ND 03-10 01:09 → ER 03-10 01:44
PROVIDERS: Emergency Provider Emergency Medicine; PCP Family Medicine
DX: K63.1 Perforation of intestine (nontraumatic) (principal); I21.4 Non-ST elevation (NSTEMI) myocardial infarction; R10.9 Unspecified abdominal pain; R07.9 Chest pain, unspecified; K59.00 Constipation, unspecified; K92.1 Melena; Z72.0 Tobacco use
CPT/HCPCS: 71275; 74177; 80053; 83690; 84484; 85025; 86803; 87389; 93005; 96361; 96365; 96366; 96374; 96375; 99291; J1171; J1885; J2270; J2543; J3360; J7120; Q9967